=== PATIENT | female | born 1980 | race Caucasian/White ===

== ENCOUNTER 2018-03-04 08:48 | Inpatient (IN) | payer OTHER ==
--- NOTE | 2018-03-04 09:02 | EDPHY ---
General Time Seen by Provider: 03/04/18 09:00 Narrative: CLINICAL IMPRESSION: Alcohol abuse with mouthwash, withdrawal ASSESSMENT/PLAN: Patient is a 38-year-old female with a significant history of alcohol abuse and bipolar disorder who presents with a chief complaint of alcohol withdrawal from mouthwash. Patient was mildly tremulous and noticed to be tachycardic on arrival. CIWA protocol was initiated, see what initially of 4. Patient was given IV fluids and multiple doses of Ativan with mild improvement of her symptoms however she remained tachycardic. Patient has required Precedex and admission in the past. CBC revealed no evidence of leukocytosis or shift, do not suspect sepsis or serious bacterial illness. Basic metabolic panel revealed no evidence of acute metabolic abnormality or evidence of acute kidney injury. Phosphorus was normal. Lipase was normal, no findings to suggest acute pancreatitis. Alcohol level was 323 consistent with use. negative. U tox negative for other substances. History of physical examination is consistent with acute alcohol intoxication and signs of withdrawal, the patient will be admitted for further observation and management. On repeat examination her neurological exam remained grossly normal with no focal deficit. Mild tremulous with a heart rate of 116, she remained otherwise hemodynamically stable. We were unable to have a formal behavioral health evaluation performed secondary to clinical intoxication. No findings to suggest metabolic abnormality or other toxidrome. I spoke to Martine Sims on the admitting team, the patient will be admitted to Dr. Debbie Turcios. Case, results and plan of care discussed with Dr. Lopez. DIFFERENTIAL DX: Encephalopathy, delirium, withdrawal, DTs ED COURSE: 9:20 a.m.: Discussed with Dr. Lopez 10:45 a.m.: Case discussed with pillowcase cutter, patient with dual diagnosis and needs formal behavioral health evaluation. BA 323 at this time. 12:30 p.m.: On repeat examination the patient reports she is feeling better, still mildly tachycardic at 110 bpm. CHIEF COMPLAINT: Alcohol withdrawal HPI: Patient is a 38-year-old female with significant medical history of bipolar disorder and alcohol abuse who presents to the emergency department in "withdrawal". Patient reports over the last several days she has been consuming unknown amounts of Listerine mouthwash. Father is present, he speaks with her daily and noticed on Monday that she seemed to be intoxicated. He flew out here to assist her with detox. Patient reports a longstanding history of alcohol abuse, has required 2 admissions for withdrawal. No history of alcohol withdrawal seizures. Reports her last drink was this morning at 6:30 a.m.. Patient denies any alcohol use or illicit drug use including marijuana. Patient also prescribed Adderall, admits to abusing in the past however denies any recent use. Patient has tried to seek treatment in the past however has been unsuccessful with her attempts at detox. Patient complains of feeling chilled, anxious with occasional episodes of diaphoresis very typical for when she is going through withdrawal. She denies any fevers, headache, dizziness, chest pain, difficulty breathing, nausea or vomiting. She has had no abdominal pain. She denies any possibility of being . PMH: Bipolar disorder, alcohol abuse Pertinent Past Surgical History: Denies Family History: Not contributory Social History: Denies cigarette smoking, denies marijuana, ETOH-mouthwash REVIEW OF SYSTEMS: All other systems negative Constitutional: Chills, decreased appetite. No fever. Eyes: No discharge, vision change ENT: No sore throat, congestion, ear pain. Cardiovascular: No chest pain, no palpitations. Respiratory: No cough, no shortness of breath. Gastrointestinal: No abdominal pain, no vomiting, diarrhea. Genitourinary: No hematuria, dysuria, flank pain, pelvic pain Musculoskeletal: No back pain, joint swelling, joint pain, myalgias. Skin: No rashes, color change. Neurological: No headache, dizziness, weakness. PHYSICAL EXAM: General Appearance: Well-developed, no acute distress and not toxic-appearing HENT: Normocephalic, atraumatic. Bilateral external ears are normal. Bilateral tympanic membranes are normal with pearly skinner reflex. Nares are clear, mucosa is pink. Oropharynx is clear however very dry, uvula is midline. There is no tonsillar enlargement or exudate. The dentition is normal. Eyes: PERRLA, no acute vision change, mild horizontal nystagmus, swelling, discharge, pain or photosensitivity. Conjunctiva pink, no pallor or injection Neck: Supple, nontender, no lymphadenopathy, no midline pain, FROM, no meningismus. Respiratory: There are no retractions, lungs are clear to auscultation. Cardiac: Mild tachycardia, no murmurs or gallops. Gastrointestinal: Abdomen is soft, nontender, bowel sounds normal, no masses/ hernia, no rigidity, guarding or focal peritoneal findings. Neurological: Alert and oriented x 3, CN 2-12 grossly intact, normal gait no ataxia, DTR's intact, normal sensation and strength. Tremulous. Skin: Warm, dry, no rashes, no nodules on palpation. Musculoskeletal: Extremities are symmetrical, full range of motion, no tenderness, deformity, swelling, or erythema. Psychiatric: Patient is oriented X 3, there is no agitation. MEDICAL DECISION MAKING: Patient was seen independently. Secondary supervising physician at time of evaluation was Dr. Lopez. Diagnosis: Alcohol abuse, withdrawal. New, requires workup Summary: See Assessment and Plan for summary of ED visit Clinical lab tests: ordered / reviewed. Independent visualization of images, tracing, or specimens: Yes. Decision to obtain medical records or history from someone other than the patient: Yes, father Review / Summarize previous medical records: Yes Discussed patient with another provider: Yes, Dr. Lopez Patient Progress: Stable, admit. - History Smoking Status: Former smoker - Objective Vital Signs: Initial Vital Signs Temperature (C) 36.7 C 03/04/18 08:52 Heart Rate 108 H 03/04/18 08:52 Respiratory Rate 18 03/04/18 08:52 Blood Pressure 138/81 H 03/04/18 08:52 O2 Sat (%) 97 03/04/18 08:52 O2 Delivery Mode Room Air Allergies/Adverse Reactions: No Known Allergies Allergy (Verified 03/03/15 08:30) Home Medications: Medication Instructions Recorded Abilify 03/04/18 Laboratory Results: Laboratory Results 03/04/18 09:34 03/04/18 09:34 03/04/18 03/04/18 03/04/18 09:58 09:34 09:34 WBC RBC Hgb Hct MCV MCH MCHC RDW Plt Count MPV Neut % (Auto) Lymph % (Auto) [place] % (Auto) Eos % (Auto) Baso % (Auto) Nucleat RBC Rel Count Absolute Neuts (auto) Absolute Lymphs (auto) Absolute Monos (auto) Absolute Eos (auto) Absolute Basos (auto) Absolute Nucleated RBC Immature Gran % Immature Gran # Sodium 136 mEq/L mEq/L (135-145) Potassium 4.1 mEq/L mEq/L (3.5-5.2) Chloride 97 mEq/L mEq/L (97-110) Carbon Dioxide 20 mEq/l L mEq/l (22-31) Anion Gap 19 mEq/L H mEq/L (6-14) BUN 11 mg/dL mg/dL (7-23) Creatinine 0.6 mg/dL mg/dL (0.6-1.0) Estimated GFR > 60 Glucose 175 mg/dL H mg/dL (70-100) Calcium 8.4 mg/dL L mg/dL (8.5-10.4) Phosphorus 3.9 mg/dL mg/dL (2.5-4.5) Total Bilirubin 0.4 mg/dL mg/dL (0.1-1.4) Conjugated Bilirubin 0.2 mg/dL mg/dL (0.0-0.5) Unconjugated Bilirubin 0.2 mg/dL mg/dL (0.0-1.1) AST 61 IU/L H IU/L (14-46) ALT 49 IU/L IU/L (9-52) Alkaline Phosphatase 68 IU/L IU/L (38-126) Total Protein 7.8 g/dL g/dL (6.3-8.2) Albumin 4.5 g/dL g/dL (3.5-5.0) Lipase 199 IU/L IU/L (23-300) Beta HCG, Qual NEGATIVE Urine Opiates Screen NEGATIVE (NEGATIVE) Urine Barbiturates NEGATIVE (NEGATIVE) Ur Phencyclidine Scrn NEGATIVE (NEGATIVE) Ur Amphetamine Screen NEGATIVE (NEGATIVE) U Benzodiazepines Scrn NEGATIVE (NEGATIVE) Urine Cocaine Screen NEGATIVE (NEGATIVE) U Marijuana (THC) Screen NEGATIVE (NEGATIVE) Ethyl Alcohol 323 mg/dL H mg/dL (0-10) 03/04/18 09:34 WBC 7.07 10^3/uL 10^3/uL (3.80-9.50) RBC 5.05 10^6/uL 10^6/uL (4.18-5.33) Hgb 15.7 g/dL g/dL (12.6-16.3) Hct 44.8 % % (38.0-47.0) MCV 88.7 fL fL (81.5-99.8) MCH 31.1 pg pg (27.9-34.1) MCHC 35.0 g/dL g/dL (32.4-36.7) RDW 12.9 % % (11.5-15.2) Plt Count 323 10^3/uL 10^3/uL (150-400) MPV 7.9 fL L fL (8.7-11.7) Neut % (Auto) 62.8 % % (39.3-74.2) Lymph % (Auto) 28.3 % % (15.0-45.0) [place] % (Auto) 7.9 % % (4.5-13.0) Eos % (Auto) 0.1 % L % (0.6-7.6) Baso % (Auto) 0.8 % % (0.3-1.7) Nucleat RBC Rel Count 0.0 % % (0.0-0.2) Absolute Neuts (auto) 4.43 10^3/uL 10^3/uL (1.70-6.50) Absolute Lymphs (auto) 2.00 10^3/uL 10^3/uL (1.00-3.00) Absolute Monos (auto) 0.56 10^3/uL 10^3/uL (0.30-0.80) Absolute Eos (auto) 0.01 10^3/uL L 10^3/uL (0.03-0.40) Absolute Basos (auto) 0.06 10^3/uL 10^3/uL (0.02-0.10) Absolute Nucleated RBC 0.00 10^3/uL 10^3/uL (0-0.01) Immature Gran % 0.1 % % (0.0-1.1) Immature Gran # 0.01 10^3/uL 10^3/uL (0.00-0.10) Sodium Potassium Chloride Carbon Dioxide Anion Gap BUN Creatinine Estimated GFR Glucose Calcium Phosphorus Total Bilirubin Conjugated Bilirubin Unconjugated Bilirubin AST ALT Alkaline Phosphatase Total Protein Albumin Lipase Beta HCG, Qual Urine Opiates Screen Urine Barbiturates Ur Phencyclidine Scrn Ur Amphetamine Screen U Benzodiazepines Scrn Urine Cocaine Screen U Marijuana (THC) Screen Ethyl Alcohol Medications Given: Lorazepam (Ativan Injection) 0 mg IVP Q1H PRN; Protocol PRN Reason: Alcohol Withdrawal w/IV access Stop: 03/04/18 21:18 Last Admin: 03/04/18 13:17 Dose: 2 mg Discontinued Medications Sodium Chloride (Ns) 1,000 mls @ 0 mls/hr IV ONCE ONE PRN Reason: Wide Open Stop: 03/04/18 09:19 Last Admin: 03/04/18 09:36 Dose: 1,000 mls Lorazepam (Ativan Injection) 2 mg IVP EDNOW ONE Stop: 03/04/18 09:32 Last Admin: 03/04/18 09:37 Dose: 2 mg Departure - Departure Disposition: [facility] Clinical Impression: Alcohol withdrawal Qualifiers: Complication of substance-induced condition: with unspecified complication Qualified Code(s): F10.239 - Alcohol dependence with withdrawal, unspecified Condition: Fair Referrals: BILL BEDOYA [Primary Care Provider] - As per Instructions
[2018-03-04] MEDS ORDERED: NS 1,000 ML IV ONE (09:18)
[2018-03-04] MEDS ORDERED: LORazepam 1 MG TAB PO PRN (09:18)
[2018-03-04] MEDS ORDERED: LORazepam 2 MG/ML INJ IVP ONE (09:31)
[2018-03-04 09:39] LABS: PLATELET COUNT 323 10^3/uL (150-400)
[2018-03-04] MEDS: LORazepam 2 MG/ML INJ IVP PRN ×8 (10:57→20:59)
[2018-03-04] MEDS ORDERED: ONDANSETRON 4 MG/2 ML VIAL IVP PRN (14:54)
[2018-03-04] MEDS ORDERED: FLUMAZENIL 0.5 MG/5 ML MDV IVP PRN (14:54)
[2018-03-04] MEDS ORDERED: ONDANSETRON DISINTEGRATING 4 MG TAB PO PRN (14:54)
[2018-03-04] MEDS ORDERED: ACETAMINOPHEN 325 MG TAB PO PRN (14:54)
--- NOTE | 2018-03-04 16:09 | GHP ---
DATE OF ADMISSION: 03/04/2018 CHIEF COMPLAINT: Alcohol withdrawal. HPI: The patient is a 38-year-old woman with a history of alcoholism and bipolar disease. She has a long history of alcoholism. Previously, she was drinking beer and had multiple stints in rehab in [facility] ([place], [place]) and at [facility]. Her last sobriety was in 2012, this was a forced sobri ety while she was on probation. She has been continuing to drink over the recent past. However, she started drinking mouthwash, just mainly it sounds like because of stigmata was not as bad as drinkin g beer. It sounds like she drinks a big bottle per day. Her last drink was this morning at 6:30. S he has been drinking more heavily over the past 3 to 4 days. Her father, who lives in [place], has been calling her and noted a significant change in her behavior since Monday night, and flew out thi s morning and found her at home inebriated and shaky, so brought her to the emergency room. She also has a history of bipolar disease and is followed by Dr. Spring Dang. She is on Abilify an d gabapentin and propranolol. However, she ran out of the gabapentin and propranolol a few days ago, and at that point is when her drinking escalated. She has had fairly significant alcohol withdrawal s in the past requiring Precedex and extended hospitalizations. REVIEW OF SYSTEMS: A 10-point review of systems was done with pertinent positives present in HPI. A dditionally, she has had no significant tremors or seizures this morning. However, she is quite tach ycardic and diaphoretic. She denies chest pain. She denies abdominal complaints, urinary, bowel arielle nges, or lower extremity complaints. PAST MEDICAL HISTORY: 1. Alcoholism. 2. Bipolar disease. 3. Migraine headaches. 4. Exercise-induced asthma. FAMILY HISTORY: A paternal grandfather with Parkinson disease. Mother has a history of alcohol use. SOCIAL HISTORY: She is . She has 3 boys and raises them, ages 8, 10, and 12. She quit smok ing and does not use marijuana. 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 MEDICATIONS: Currently, she is taking Abilify, however, she stopped taking the gabapentin and propra nolol over the last few days. ALLERGIES: No known drug allergies. PHYSICAL EXAM: VITAL SIGNS: Heart rate is 120 to 130, blood pressure 135/80, respirations 16. She is 94% on room air. IN GENERAL: She is a slightly disheveled 38-year-old in mild distress. She is alert and oriented. HEENT: Pupils are equal. Extraocular movements are intact. Mucous membranes m oist. Oropharynx is clear. NECK: Supple. No adenopathy. HEART: Regular and tachycardic. No mur mur. LUNGS: Clear bilaterally without wheeze or rhonchi. ABDOMEN: Soft, nontender, nondistended. EXTREMITIES: No joint deformities or effusions. NEUROLOGIC: Speech is fluent. Minimal tremulousn ess. She is moving all 4 extremities. PSYCHIATRIC: She has a slightly bizarre affect given the cir cumstances of her admission. But she is appropriate. Her father is at the bedside. SKIN: Intact. She is not jaundiced. ASSESSMENT AND PLAN: 1. 38-year-old with a long history of alcohol abuse, recently drinking mouthwash as her primary alco hol intake, is admitted for alcohol withdrawal and detox. Plan will be to admit her to the hospital, place her on the [facility] Withdrawal Assessment protocol. She is at high risk given her p revious history of detox of requiring Precedex or high doses of Ativan. 2. Bipolar disease, followed by Dr. Spring Dang. Will continue her Abilify and resume her gabapen tin here in the hospital. 3. Deep vein thrombosis prophylaxis. Patient is relatively low risk and if she has an extended hosp italization, will add Lovenox subcu. /[id number]/MODL
[2018-03-04] MEDS: ARIPiprazole 5 MG TAB PO SCH (16:25)
[2018-03-04] MEDS: GABAPENTIN 400 MG CAP PO SCH ×2 (16:25→19:40)
--- NOTE | 2018-03-04 16:42 | ASMTCMCOM ---
CM Note CM Note Notes: Pt presented to the ED for ETOH withdrawal detox. Pt is accompanied by her father, Tiarra, who flew into [place] from [place], [place]. Requested by ED provider to try to find placement to a medical detox / dual diagnosis program (pt has a history of JOHN, Bipolar disorder, PTSD). Provider requesting placement other than [facility] due to concerns re: her history of requiring Precedex SDU/ICU admission for her ETOH w/d ([facility]?); and concerns re: her choice to drink bottles of Listerine as her source of alcohol. Spoke w/pt and Tiarra extensively at bedside; discussed options such as [facility] or [facility]. Pt kept saying "I need to be admitted to your ICU and get ativan," and "I need more medical care than [facility]. They don't do anything. I need the ICU and valium." This CM attempted to explain the overall approach and process from the ED but the pt kept interrupting and Tiarra also voiced his concerns over pt leaving the hospital setting. At this point, this CM spoke w/ED provider and relayed the pt's and Tiarra's perspective and concern. It was decided that CM would still attempt to get pt placed at either or ; this CM sent referrals via [employer]. Spoke w/Fede at [facility] and he was not able to confirm whether [facility] was in network w/pt's insurance and "to call back during regular business hours." Spoke w/Marin at and he said that they are considered [id number] w/pt's insurance but that they could still accept if pt is willing to sign an [id number] agreement prior to admission; Marin also initially said they wouldn't need an official full mental health eval but after reviewing pt's case further they decided they would need a complete mental health eval. Pt is not sober enough to be evaluated by [facility] and ultimately the ED provider decided that pt would benefit from being admitted. Pt's psychiatrist is Dr Spring Abarca. Pt states she has been regularly taking her Abilify but stopped taking her other meds a couple of days ago. Pt has three children and shared custody w/her ex who lives in [place]. Pt has an extensive history of substance abuse and mental health issues. Pt states she has been to a treatment facility in [place] and then transitioned back to [place] to [facility] in [place]. Please see H&P for additional info. Pt would probably benefit from another residential SA treatment stay, inpatient behavioral health stay, IOP vs OP, etc. Pt is very familiar with various outpatient resources such as AA, [facility], [facility], etc. Tiarra states he thinks he and his (pt's mother) will end up moving out to [place] to help support patient. Exact DC needs TBD. CM to follow. Date Signed: 03/04/2018 04:42 PM Electronically Signed By:Anna Waggoner RN
[2018-03-04] MEDS ORDERED: PROTOCOL MAGNESIUM 1 DOSE IV PRN (16:57)
[2018-03-04] MEDS ORDERED: PROTOCOL K PHOSPHATE 1 DOSE IV PRN (16:57)
[2018-03-04] MEDS ORDERED: PROTOCOL POTASSIUM 1 DOSE MISC PRN (16:57)
[2018-03-04] MEDS ORDERED: MAGNESIUM SULF 1 GM/DEXTROSE 100 ML IV ONE (17:03)
[2018-03-04] MEDS: FAMOTIDINE 20 MG TAB PO SCH (19:40)
[2018-03-04] MEDS: PROPRANOLOL HCL 20 MG TAB PO SCH (19:40)
--- NOTE | 2018-03-04 20:09 | PDMN ---
Medical Necessity Medical necessity: [facility] [id number] substance related disorders: 38 with long hx of ETOH abuse/ previous detox- high risk due to previous detoxs req precede or Ativan, tachycardia, bipolar, etoh level 323- CIWA anticipate > 2 MN ongoing med nec care, further monitoring, eval and tx
[2018-03-05] MEDS: LORazepam 2 MG/ML INJ IVP PRN ×10 (02:32→22:32)
[2018-03-05] MEDS: GABAPENTIN 400 MG CAP PO SCH ×4 (05:47→20:22)
[2018-03-05] MEDS: THIAMINE HCL 500 MG in NS 100 ML IV SCH (08:12)
[2018-03-05] MEDS: ARIPiprazole 5 MG TAB PO SCH (08:12)
[2018-03-05] MEDS: FAMOTIDINE 20 MG TAB PO SCH ×2 (08:12→20:23)
[2018-03-05] MEDS: PROPRANOLOL HCL 20 MG TAB PO SCH ×2 (08:12→20:23)
[2018-03-05] MEDS: OXcarbazepine 300 MG TAB PO SCH (08:12)
[2018-03-05] MEDS: FOLIC ACID 1 MG TAB PO SCH (08:12)
[2018-03-05] MEDS: MULTIVITAMINS 1 EACH TAB PO SCH (08:12)
--- NOTE | 2018-03-05 10:44 | HOSPPROG ---
Hospitalist Progress Note Assessment/Plan: 38-year-old with bipolar disease and alcoholism is admitted for detox. She has received 16 mg of Ativan over the past 12 hr and continues to have some anxiety. She has not yet 24 hr out from her last drink and has the risk potential for worsening and DTs in the next 24 hr. # alcoholism and alcohol withdrawal * Continue CIWA * Will need an additional midnight stay for ongoing close monitoring for her alcohol withdrawal and seizure potential # bipolar disease, followed by Dr. Spring Dang as an outpatient * I have resumed her usual outpatient medication * She will need close follow-up after discharge # DVT prophylaxis: Will add Lovenox given her minimal ambulation since arriving Subjective: Patient continues to feel significant anxiety and some sedation from the Ativan. Objective: Vital Signs Temp Pulse Resp BP Pulse Ox 37.2 C 97 15 124/81 H 97 03/05/18 00:00 03/05/18 08:12 03/05/18 08:00 03/05/18 08:12 03/05/18 08:00 Laboratory Results 03/05/18 05:38 03/04/18 03/05/18 03/06/18 05:59 05:59 05:59 Intake Total 1250 Output Total 1 Balance 1249 - Physical Exam Constitutional: uncomfortable Eyes: PERRL Ears, Nose, Mouth, Throat: moist mucous membranes Cardiovascular: regular rate and rhythym Respiratory: no respiratory distress Gastrointestinal: soft, non-tender abdomen, no palpable masses Genitourinary: no bladder fullness Skin: normal color, other (Diaphoretic) Musculoskeletal: No muscular tenderness Neurologic: AAOx3 Psychiatric: interacting appropriately, anxious ICD10 Worksheet Patient Problems: Problems Problem Status Onset Alcohol withdrawal Acute
--- NOTE | 2018-03-05 14:57 | ASMTCMCOM ---
CM Note CM Note Notes: A family meeting was held today with the father of patient. (see Elizabeth Tinajero's notes) Abilio was given [facility] resources for himself and the patient. Abilio states patient sees a psychiatrist and a therapist currently. Abilio reports patient has not had success with inpatient A and D treatment and the IOP programs are difficult for her due to parenting responsibilities. He and his are planning to eventually move here to be family support and daily support for the patient. Airam has always done better when her family has been close by to support her as reported by her father.CM is available to provide further resources to patient if she has interest. CM will follow. Date Signed: 03/05/2018 02:57 PM Electronically Signed By:Yajaira Adorno LCSW
--- NOTE | 2018-03-05 16:04 | GCON ---
CRITICAL CARE CONSULTATION DATE OF CONSULTATION: 03/05/2018 HISTORY OF PRESENT ILLNESS: This patient is a 38-year-old female with a history of alcoholism and bi polar disorder who has been through rehab multiple times in the past and was sober up until about 201 3. However, it sounds like there are multiple social issues at home with stresses with her current h usband or boyfriend and started drinking heavily over the last several days. She was admitted on the with mental status changes, intoxication and tremors and started on the CIWA protocol. She rec eived a total of 16 mg of Ativan overnight and was substantially better by this morning and needed ve ry little, if any, Ativan over the course of the day today, and no Precedex drip was required. She s aid that she does want to quit drinking, and we did not go into further details about her social situ ation. REVIEW OF SYSTEMS: Review of systems otherwise negative. She did have tachycardia and diaphoresis y esterday, but those do not exist today. PAST MEDICAL HISTORY: Includes alcoholism, bipolar disease, migraines. She is also thought to have exercise-induced asthma but does not use any inhalers. SOCIAL HISTORY: She is a former smoker but not current and was drinking quite a bit of alcohol prior to admission as well as mouthwash. FAMILY HISTORY: Includes Parkinson's and alcoholism. MEDICATIONS: Medications as an outpatient include Abilify, gabapentin, and propranolol. ALLERGIES: None. PHYSICAL EXAMINATION: VITAL SIGNS: Today, she was afebrile. Blood pressure was 132/82, heart rate of 78, respirations 13, oxygen saturation 97% on room air. GENERAL APPEARANCE: She was awake, alert , in no apparent distress and able to speak in full sentences without using accessory muscles for katie athing. HEENT: Pupils equally round and reactive to light, nonicteric and noninjected. Mucous memb ranes are moist without erythema or exudate. NECK: Supple without adenopathy or jugular vein disten tion. CHEST: Breath sounds were clear to auscultation bilaterally without wheezes rubs or rales. H EART: Regular rate and rhythm without murmurs, rubs, gallops. ABDOMEN: Soft, nontender, nondistend ed without hepatosplenomegaly. EXTREMITIES: Show no clubbing, cyanosis, or edema. NEUROLOGIC: Non focal, including cranial nerves, deep tendon reflexes. There was no tremor, asterixis, or diaphoresi s. OBJECTIVE DATA: Includes labs from yesterday with a normal CBC and CMP except for an AST of 61. Tox screen showed an alcohol level of 323. ASSESSMENT AND PLAN: 1. Alcohol withdrawal presumably. She appears to have gotten through this fairly quickly, although it was a fairly high dose of Ativan. She has needed very little Ativan over the course of the day to day, and she may be past the worst of it. Will continue her observation but may downgrade her to med /surg this afternoon. 2. Bipolar disorder. She continues on her Abilify. Appears to be relatively stable at this time. Case is reviewed with Dr. Turcios today. /[id number]/MODL
[2018-03-05] MEDS: chlordiazePOXIDE 25 MG CAP PO PRN (22:38)
[2018-03-06] MEDS: LORazepam 2 MG/ML INJ IVP PRN ×11 (00:07→19:46)
[2018-03-06] MEDS: chlordiazePOXIDE 25 MG CAP PO PRN (03:33)
[2018-03-06] MEDS: GABAPENTIN 400 MG CAP PO SCH ×4 (05:25→20:19)
[2018-03-06] MEDS: DEXMEDETOMIDINE HCL 400 MCG in NS 100 ML IV SCH ×2 (06:00→22:37)
[2018-03-06] MEDS: LORazepam 1 MG TAB PO SCH ×3 (06:12→18:05)
[2018-03-06] MEDS: FOLIC ACID 1 MG TAB PO SCH (07:59)
[2018-03-06] MEDS: ARIPiprazole 5 MG TAB PO SCH (07:59)
[2018-03-06] MEDS: FAMOTIDINE 20 MG TAB PO SCH ×2 (07:59→20:19)
--- NOTE | 2018-03-06 09:37 | PDINTPN ---
Compensation Advisor Progress Note Assessment/Plan: Assessment: Plan: Subjective: 38 F with emt intermediate alcohol problems and multiple attempts at rehab, admitted with tremor, intoxication (BAL= 323) and altered mental status. She was started on the CIWA protocol and required 16 mg ativan in the first 24 hours. * alcohol withdrawal- She has been treated with a total of 42 mg Ativan in the 48 hours, including 26 mg in the last 24 hours. She was reportedly delirious last night and was walking down the casas, though she said she was confused about restraints, and ultimately required a precedex drip. She called her Dad ( visiting from out of state) at 0500 and wanted him to be here early to facilitate discharge, for which she was highly anxious about this am during my exam. She said her issues for DC revolved around being in her own home and preparing for her kids tomorrow afternoon. After discussion with staff electrical engineer and Dr. Turcios, we agreed that we are unlikely to alter her behavior and she is under the treatment of a local psychiatrist already. If she can maintain without precedex or escalating benzos she may be able to go home, but I suspect she is in the middle of active alcohol withdrawal and her current state of general stability is the result of her CIWA protocol. * Bipolar disorder stable on abilify. Objective: Vital Signs Temp Pulse Resp BP Pulse Ox 36.6 C 83 15 110/76 91 L 03/06/18 07:41 03/06/18 07:41 03/06/18 07:41 03/06/18 07:41 03/06/18 07:41 Laboratory Results 03/06/18 06:03 03/05/18 03/06/18 03/07/18 05:59 05:59 05:59 Intake Total 1250 2249 Output Total 1 Balance 1249 2249 Physical Exam - Physical Exam General Appearance: WD/WN, alert, no apparent distress EENT: PERRL/EOMI, No scleral icterus (R), No scleral icterus (L) Neck: supple Respiratory: lungs clear, normal breath sounds, No respiratory distress, No accessory muscle use Cardiac/Chest: regular rate, rhythm, No edema Abdomen: non-tender, soft, No distended Skin: normal color, warm/dry, No cyanosis, No diaphoresis Lymphatic: no adenopathy Extremities: No pedal edema Neuro/Psych: alert, normal mood/affect, oriented x 3, other (no tremor. questionable insight to the severity of her alcohol problem. ) ICD10 Worksheet Patient Problems: Problems Problem Status Onset Alcohol withdrawal Acute
--- NOTE | 2018-03-06 09:46 | HOSPPROG ---
Hospitalist Progress Note Assessment/Plan: 38-year-old with bipolar disease and alcoholism is admitted for detox. She has received 42 mg of ativan over the last 48 hours and on a precedex drip overnight. # alcoholism and alcohol withdrawal * Pt is anxious to go home however given her significant need for ativan and precedex I feel she is still in withdrawal * After stopping precedex she became much more agitated and agreed to stay and resume precedex # bipolar disease, followed by Dr. Spring Dang as an outpatient * I have resumed her usual outpatient medication * She will need close follow-up after discharge # DVT prophylaxis: Will add Lovenox given her minimal ambulation since arriving Subjective: Alert and appropriate, although anxious. Just off of precedex Objective: Vital Signs Temp Pulse Resp BP Pulse Ox 36.6 C 83 15 110/76 91 L 03/06/18 07:41 03/06/18 07:41 03/06/18 07:41 03/06/18 07:41 03/06/18 07:41 Laboratory Results 03/06/18 06:03 03/05/18 03/06/18 03/07/18 05:59 05:59 05:59 Intake Total 1250 2249 Output Total 1 Balance 1249 2249 - Physical Exam Constitutional: appears nourished Eyes: PERRL, EOMI Cardiovascular: regular rate and rhythym Respiratory: no respiratory distress Skin: normal color Musculoskeletal: full muscle strength Neurologic: AAOx3 Psychiatric: anxious ICD10 Worksheet Patient Problems: Problems Problem Status Onset Alcohol withdrawal Acute
[2018-03-06] MEDS: OXcarbazepine 300 MG TAB PO SCH (11:03)
[2018-03-06] MEDS: PROPRANOLOL HCL 20 MG TAB PO SCH ×2 (11:03→20:20)
[2018-03-06] MEDS: MULTIVITAMINS 1 EACH TAB PO SCH (11:03)
[2018-03-06] MEDS: THIAMINE HCL 500 MG in NS 100 ML IV SCH (12:20)
[2018-03-07] MEDS: LORazepam 1 MG TAB PO SCH ×2 (01:13→05:06)
[2018-03-07] MEDS: chlordiazePOXIDE 25 MG CAP PO PRN (03:50)
[2018-03-07] MEDS: GABAPENTIN 400 MG CAP PO SCH ×4 (05:06→20:24)
[2018-03-07] MEDS ORDERED: MAGNESIUM SULF 1 GM/DEXTROSE 100 ML IV ONE (08:16)
[2018-03-07] MEDS: PROPRANOLOL HCL 20 MG TAB PO SCH ×2 (08:21→20:23)
[2018-03-07] MEDS: FAMOTIDINE 20 MG TAB PO SCH ×2 (08:22→20:24)
[2018-03-07] MEDS: ARIPiprazole 5 MG TAB PO SCH (08:23)
[2018-03-07] MEDS: FOLIC ACID 1 MG TAB PO SCH (08:24)
[2018-03-07] MEDS: MULTIVITAMINS 1 EACH TAB PO SCH (08:24)
[2018-03-07] MEDS: THIAMINE HCL 100 MG TAB PO SCH (08:24)
[2018-03-07] MEDS: OXcarbazepine 300 MG TAB PO SCH (08:25)
[2018-03-07] MEDS ORDERED: DIHYDROERGOTAMINE 1 MG/ML AMP IVP ONE (09:57)
[2018-03-07] MEDS: chlordiazePOXIDE 25 MG CAP PO SCH ×3 (11:29→21:32)
[2018-03-07] MEDS: LORazepam 1 MG TAB PO PRN ×2 (14:06→20:23)
--- NOTE | 2018-03-07 14:19 | PDINTPN ---
Visual Merchandising Manager Progress Note Assessment/Plan: 38 F with long history of etoh abuse and failed rehab multiple times, admitted after her father found her intoxicated and altered. She has apparently been substituting Listerine for etoh. Interested in completing wd protocol. * ETOH wd- in the first 48 hours, her CIWA score was remarkably high for someone who can maintain a fairly highly functioning conversation. I had a lengthy discussion with her this am concerning the severity of her illness and stressed that she understand that her previous strategies have failed and the consequences may be far-reaching, such as losing her kids. She has been very cooperative to date. Today we will schedule Librium and keep her off precedex and monitor for changes. She understood that her dishcarge is dependent on the amount of medication needed to ensure stability. It is possible, though not promised, that she could be ready for dc as early as tomorrow. There is also the possibility that her self-reported symptoms are actually drug-seeking rather than etoh wd related, though we have not discussed this yet. Subjective: still required ativan in last 24 hours in addition to precedex. Remains anxious for dc home Objective: Vital Signs Temp Pulse Resp BP Pulse Ox 36.4 C 81 16 111/81 H 96 03/07/18 12:00 03/07/18 14:00 03/07/18 14:00 03/07/18 14:00 03/07/18 14:00 Laboratory Results 03/07/18 05:21 03/06/18 03/07/18 03/08/18 05:59 05:59 05:59 Intake Total 2249 1302.5 Output Total 1 Balance 2249 1301.5 Physical Exam - Physical Exam General Appearance: WD/WN, alert, no apparent distress EENT: PERRL/EOMI Neck: supple Respiratory: lungs clear, normal breath sounds, No respiratory distress, No accessory muscle use Cardiac/Chest: regular rate, rhythm, No edema Abdomen: normal bowel sounds, non-tender, soft, No distended Skin: normal color, warm/dry, No cyanosis Lymphatic: no adenopathy Extremities: No pedal edema Neuro/Psych: alert, normal mood/affect, oriented x 3 ICD10 Worksheet Patient Problems: Problems Problem Status Onset Alcohol withdrawal Acute
--- NOTE | 2018-03-07 17:08 | HOSPPROG ---
Hospitalist Progress Note Assessment/Plan: 38-year-old with bipolar disease and alcoholism presented intoxicated and wanting to detox/withdrawal. She received >40mg ativan 2 days ago and >20mg ativan yesterday in addition to precedex. 1. Alcohol withdrawal: Improving, off precedex, benzo requirements high but going down. - Schedule librium 50mg TID, keep on board ativan PO PRN for additional agitation 2. Alcohol abuse: She is motivated to quit. Counseled on cessation. 3. Bipolar disease: Followed by Dr Spring Dang - Continue outpatient medications VTE ppx: ambulation Code: full Diet: regular Dispo: Remain inpatient, hopefully home in next 1-2 days pending clinical course Subjective: Sitting up in chair eating lunch. Wondering when she can go home. Feels good, no tremors or hallucinations. Objective: Vital Signs Temp Pulse Resp BP Pulse Ox 36.4 C 90 16 121/77 H 97 03/07/18 16:00 03/07/18 16:00 03/07/18 16:00 03/07/18 16:00 03/07/18 16:00 Laboratory Results 03/07/18 05:21 03/06/18 03/07/18 03/08/18 05:59 05:59 05:59 Intake Total 2249 1302.5 Output Total 1 Balance 2249 1301.5 - Physical Exam Constitutional: no apparent distress, appears nourished, not in pain Eyes: PERRL, anicteric sclera, EOMI Ears, Nose, Mouth, Throat: moist mucous membranes, hearing normal, ears appear normal, no oral mucosal ulcers Cardiovascular: regular rate and rhythym, no murmur, rub, or gallop Respiratory: no respiratory distress, no rales or rhonchi, clear to auscultation Gastrointestinal: normoactive bowel sounds, soft, non-tender abdomen, no palpable masses Genitourinary: no bladder fullness, no bladder tenderness, no renal bruits Skin: no rashes or abrasions, no fluctuance, no induration Musculoskeletal: full muscle strength, no muscle tenderness, normal joint ROM Neurologic: AAOx3, other (no tongue fasciculations or hand tremors), No asterixes Psychiatric: interacting appropriately, not anxious, not encephalopathic, thought process linear ICD10 Worksheet Patient Problems: Problems Problem Status Onset Alcohol withdrawal Acute
[2018-03-07] MEDS ORDERED: diphenhydrAMINE 25 MG CAP PO PRN (22:33)
[2018-03-07] MEDS ORDERED: MELATONIN 3 MG TAB PO PRN (22:33)
[2018-03-08] MEDS: LORazepam 1 MG TAB PO PRN (02:58)
[2018-03-08] MEDS: GABAPENTIN 400 MG CAP PO SCH (06:34)
[2018-03-08] MEDS ORDERED: MAGNESIUM SULF 1 GM/DEXTROSE 100 ML IV ONE (07:39)
[2018-03-08 08:02] VITALS: BP 125/79
[2018-03-08] MEDS: ARIPiprazole 5 MG TAB PO SCH (08:39)
[2018-03-08] MEDS: FAMOTIDINE 20 MG TAB PO SCH (08:39)
[2018-03-08] MEDS: THIAMINE HCL 100 MG TAB PO SCH (08:39)
[2018-03-08] MEDS: FOLIC ACID 1 MG TAB PO SCH (08:39)
[2018-03-08] MEDS: PROPRANOLOL HCL 20 MG TAB PO SCH (08:39)
[2018-03-08] MEDS: MULTIVITAMINS 1 EACH TAB PO SCH (08:39)
[2018-03-08] MEDS ORDERED: THIAMINE HCL 100 MG TAB PO SCH (09:00)
[2018-03-08] MEDS: OXcarbazepine 300 MG TAB PO SCH (09:36)
[2018-03-08] MEDS: chlordiazePOXIDE 25 MG CAP PO SCH (09:36)
--- NOTE | 2018-03-08 11:38 | PDDCSUM ---
Discharge Summary Discharge Summary: Date of Admission: 03/04/2018 Date of Discharge: 03/08/2018 Consultants: pilot manager (Dr Amadou Liang) Studies/Procedures: none Discharge Diagnoses: 1. Severe alcohol withdrawal 2. Alcohol abuse disorder 3. Mood/bipolar disorder, followed by Dr Spring Dang Brief Hospital Course: 38yo F with long history of etoh abuse was admitted after her father found her intoxicated. She had apparently been substituting Listerine for etoh. She was interested in completing withdrawal and was started on the CIWA protocol. She was initially requiring very high doses of benzodiazepines as well as precedex. We transitioned her to scheduled librium and she was ultimately discharged with a librium taper. She reports that she plans to continue going to AA meetings and try a new sobriety program. Additionally, her father just moved nearby to provide additional support, as she is a single mother with sole custody of her children. It should be noted that on several occasions over the last few days of her hospitalization, the patient was adamant about leaving the hospital prematurely. This was concerning behavior to us. Dr Liang and myself had a conversation with her and her father regarding this. Ultimately, she was medically stable on day of discharge. Medications: Please refer to EMR for complete list. I did write for a librium taper as follows: 50mg TID x3 days, then 25mg TID x3 days, then 10mg TID x3 days , then stop. Follow Up Plan: 1. She plans to follow up with sobriety resources as listed above Physical Exam: Vitals reviewed, normal HR and BP. Alert and oriented, no hand tremor or tongue fasciculations, rrr without m/r/g, lungs clear, abdomen soft, no rashes or edema.
--- NOTE | 2018-03-08 13:48 | PDINTPN ---
Lien Searcher Progress Note Assessment/Plan: 38 F with long history of etoh abuse and failed rehab multiple times, admitted after her father found her intoxicated and altered. She has apparently been substituting Listerine for etoh. She was initially interested in completing wd protocol. * ETOH wd- yesterdays attempt at scheduled librium and dc precedex was mostly successful, though she required 2 mg ativan at 1400, 2020, and 0300 this morning. She reported anxiety about ongoing hospitalization as the reason for her ativan requirement. Today she was dressed and prepared to leave AMA if we did not dc her home. In my opinion, she is medically stable for discharge, eg there are no physiologic parameters that are requiring ongoing admission. I think it is still atyp[ical to dc at this time and have made that abundantly clear to her on numerous occasions. I also cautioned her to reconsider her plan for leaving AMA given the implications summer camp counselor, and she agreed. Dr. Painting and I discussed plans for an outpatient Librium taper, though I strongly suspect her etoh issues will continue given her urgency and insistence for premature discharge. She said she now has her father renting an apartment nearby so can "lean" on him for more social support, since she is a single mother with sole custody of her children. I believe she fully understands the issues. In addition, I would reiterate my suspicion that she may be drug seeking , although I have very little to support that concept. 03/08/18 13:41 03/08/18 13:49 Subjective: feels well and continues to emphasize discharge. Today threatened to leave AMA. Objective: Vital Signs Temp Pulse Resp BP Pulse Ox 36.7 C 94 17 125/79 H 98 03/08/18 07:59 03/08/18 07:59 03/08/18 07:59 03/08/18 07:59 03/08/18 07:59 Laboratory Results 03/08/18 05:57 03/07/18 03/08/18 03/09/18 05:59 05:59 05:59 Intake Total 1302.5 3050 Output Total 1 Balance 1301.5 3050 Physical Exam - Physical Exam General Appearance: WD/WN, alert, no apparent distress EENT: PERRL/EOMI Neck: supple Respiratory: lungs clear, normal breath sounds, No respiratory distress, No accessory muscle use Cardiac/Chest: regular rate, rhythm, No edema Abdomen: non-tender, soft, No distended Skin: normal color, warm/dry, No cyanosis Lymphatic: no adenopathy Extremities: No pedal edema Neuro/Psych: alert, normal mood/affect, oriented x 3 ICD10 Worksheet Patient Problems: Problems Problem Status Onset Alcohol withdrawal Acute
== END 2018-03-08 12:21 | disposition home or self-care (01) | DRG 897 ==
LOC: F2N 15:00
PROVIDERS: ADMIT Internal Medicine; ATTEND Internal Medicine
DX: F10.230 Alcohol dependence with withdrawal, uncomplicated (principal); F10.220 Alcohol dependence with intoxication, uncomplicated; F31.9 Bipolar disorder, unspecified; G43.909 Migraine, unspecified, not intractable, without status migrainosus; Z87.891 Personal history of nicotine dependence
CPT/HCPCS: 80305; 96374; G0480; J2060; J3411; J3475

== ENCOUNTER 2018-03-25 11:10 | Observation (INO) | payer OTHER ==
--- NOTE | 2018-03-25 11:29 | EDPHY ---
H & P Stated Complaint: med reaction - Personal History Current Tetanus/Diphtheria Vaccine: Yes Current Tetanus Diphtheria and Acellular Pertussis (TDAP): Yes Tetanus Vaccine Date: WITHIN 10 YRS - Medical/Surgical History Hx Asthma: No Hx Chronic Respiratory Disease: No Hx Diabetes: No Hx Cardiac Disease: No Hx Renal Disease: No Hx Cirrhosis: No Hx Alcoholism: Yes Hx HIV/AIDS: No Hx Splenectomy or Spleen Trauma: No Other PMH: jaw surgery, ADD, depression, anxiety, PTSD, ?bipolar, ETOH - Social History Smoking Status: Former smoker Time Seen by Provider: 03/25/18 11:22 HPI/ROS: CHIEF COMPLAINT: "I am here to have my sodium level checked" HISTORY OF PRESENT ILLNESS: 38-year-old female history of alcoholism, history of recent hospitalization at [facility] for medical detox at which point she was started on Tripleptal. She spoke with her psychiatrist regarding her bipolar disorder and her psychiatrist was concerned due to her somnolence and slurred speech that the patient may be hyponatremic, possible adverse effect Trileptal, recommend she go to the ER today (Monday) for blood work. Patient denies acute alcohol use. Patient has no complaints of pain or discomfort. The father at bedside provides further information noting that the patient seems more somnolent for the past 2 weeks since discharge from the hospital. No trauma. Patient denies: Abdominal pain, nausea, vomiting, dyspnea, rash, intraoral lesion, trauma, fall, head injury, assault, illicit drug use REVIEW OF SYSTEMS: 10 systems reviewed and negative with the exception of the elements mentioned in the history of present illness PAST MEDICAL & SURGICAL HISTORY: Bipolar disorder. Alcoholism history. Anxiety. Attention deficit hyperactivity disorder. SOCIAL HISTORY:Denies acute alcohol or drug use PHYSICAL EXAM (Prior to examination, patient consented to physical exam, hands were washed and my usual and customary physical exam procedures followed) 1) GENERAL: Well-developed, well-nourished, somnolent, slurred speech. 2) HEAD: Normocephalic, atraumatic 3) HEENT: Pupils equal, round, reactive to light bilaterally. Sclera anicteric. Nasopharynx, oropharynx, clear, no lesions. MoistDry mucous membranes. Ears bilaterally with normal tympanic membranes. 4) NECK: Full range of motion, no meningeal signs. 5) LUNGS: Clear auscultation bilaterally, no wheezes, no rhonchi, no retractions. 6) HEART: Regular rate and rhythm, no murmur, no heave, no gallop. 7) ABDOMEN: No guarding, no rebound, no focal tenderness, negative McBurney's, negative Fuller's, negative Rovsing's, negative peritoneal sign, 8) MUSCULOSKELETAL: Moving all extremities, no focal areas of tenderness, no obvious trauma. No peripheral edema or discoloration. 9) BACK: No CVA tenderness, no midline vertebral tenderness, no fluctuance, no step-off, no obvious trauma, no visual or palpable abnormality. 10) SKIN: No rash, no petechiae. 11) Psychiatric: Patient is oriented X 3, she is highly somnolent 12) NEURO: Sleeping, oriented to person, place and time. Speech is slow. Cranial nerves 2 through to 12 intact. Unable to ambulate without assistance more than 2 steps. Upper and lower extremities bilaterally with strength 5 / 5, reflexes 2+. DIFFERENTIAL DIAGNOSIS: In no particular orderincluding but not limited to hypoglycemia, infectious process, poly pharmacy, hepatic encephalopathy, electrolyte abnormality, head injury and intoxicants. (Kaylynn Alberto Muna) Constitutional: Initial Vital Signs Temperature (C) 36.7 C 03/25/18 11:14 Heart Rate 74 03/25/18 11:14 Respiratory Rate 16 03/25/18 11:14 Blood Pressure 115/69 03/25/18 11:14 O2 Sat (%) 98 03/25/18 11:14 O2 Delivery Mode Room Air Allergies/Adverse Reactions: No Known Allergies Allergy (Verified 03/25/18 11:13) Home Medications: Medication Instructions Recorded ARIPiprazole [Abilify 5 mg (*)] 5 mg PO DAILY 03/04/18 Gabapentin [Neurontin 400 MG (*)] 800 mg PO QID 03/04/18 Oxcarbazepine [Trileptal] 150 mg PO BID 03/04/18 Propranolol HCl [Inderal 20mg (*)] 20 mg PO BID 03/04/18 Methylphenidate HCl [Ritalin 20mg 20 mg PO BID@09,12 03/25/18 (*)] Medical Decision Making - Diagnostics EKG Interpretation: EKG: Complete interpretation has been separately recorded in the [facility] archive. Summary impression: Sinus rhythm, 71 (Jai Estevez) Imaging Results: Imaging Impressions Head CT 03/25/18 13:59 Impression: 1. Normal CT brain without contrast. 2. Consider MRI of the brain, if there is continued clinical concern. Findings and recommendations discussed with Emergency Department physicianKaylynn at 15:06 hour, 03/25/2018. Final report concurs with initial preliminary interpretation. ED Course/Re-evaluation: Care of patient under supervision of primary Supervising physician Dr Estevez with whom I discussed case. 12:40 p.m.: Re-evaluation, patient is highly somnolent. Specifically inquired this time whether she has ingested any other medicines beyond prescribed medicines and she denies this. She denies suicidal homicidal ideation. She is unable to ambulate from bed to the door way secondary to 1:59 p.m.: [facility] Painting, CT imaging will be obtained 2:22 p.m.: Consultation with the patient's psychiatrist Dr. Spring Dang at this time, cell phone [phone] (Kaylynn Alberto) Other Provider: PHYSICIAN DOCUMENTATION: The patient was evaluated and managed by the Physician Bladder Tier. My co- signature indicates that I have reviewed this chart and I agree with the findings and plan of care as documented. I am the secondary supervising physician. (Jai Estevez) - Data Points Laboratory Results: Laboratory Results 03/25/18 11:50 03/25/18 11:50 03/25/18 03/25/18 03/25/18 13:05 11:50 11:50 WBC RBC Hgb Hct MCV MCH MCHC RDW Plt Count MPV Neut % (Auto) Lymph % (Auto) Bucks % (Auto) Eos % (Auto) Baso % (Auto) Nucleat RBC Rel Count Absolute Neuts (auto) Absolute Lymphs (auto) Absolute Monos (auto) Absolute Eos (auto) Absolute Basos (auto) Absolute Nucleated RBC Immature Gran % Immature Gran # Sodium Potassium Chloride Carbon Dioxide Anion Gap BUN Creatinine Estimated GFR Glucose Calcium Total Bilirubin 0.6 mg/dL mg/dL (0.1-1.4) Conjugated Bilirubin 0.6 mg/dL H mg/dL (0.0-0.5) Unconjugated Bilirubin 0.0 mg/dL mg/dL (0.0-1.1) AST 54 IU/L H IU/L (14-46) ALT 15 IU/L IU/L (9-52) Alkaline Phosphatase 121 IU/L IU/L (38-126) Ammonia < 9.0 uMOL/L L uMOL/L (9.0-30.0) Creatine Kinase 230 IU/L H IU/L (0-156) CK-MB (CK-2) Fraction 4.21 ng/mL ng/mL (0.00-4.55) CK-MB (CK-2) % 1.8 % % (0.0-4.0) Creatine Kinase Interp NEGATIVE (NEGATIVE) Total Protein 6.9 g/dL g/dL (6.3-8.2) Albumin 4.0 g/dL g/dL (3.5-5.0) TSH 0.784 uIU/mL uIU/mL (0.465-4.680) Salicylates < 1.0 mg/dL L mg/dL (2.0-20.0) Acetaminophen < 10 mcg/mL L mcg/mL (10-30) Ethyl Alcohol 03/25/18 03/25/18 11:50 11:50 WBC 5.13 10^3/uL 10^3/uL (3.80-9.50) RBC 4.00 10^6/uL L 10^6/uL (4.18-5.33) Hgb 12.5 g/dL L g/dL (12.6-16.3) Hct 36.3 % L % (38.0-47.0) MCV 90.8 fL fL (81.5-99.8) MCH 31.3 pg pg (27.9-34.1) MCHC 34.4 g/dL g/dL (32.4-36.7) RDW 12.9 % % (11.5-15.2) Plt Count 296 10^3/uL 10^3/uL (150-400) MPV 7.6 fL L fL (8.7-11.7) Neut % (Auto) 51.2 % % (39.3-74.2) Lymph % (Auto) 35.7 % % (15.0-45.0) Bucks % (Auto) 8.6 % % (4.5-13.0) Eos % (Auto) 3.1 % % (0.6-7.6) Baso % (Auto) 1.0 % % (0.3-1.7) Nucleat RBC Rel Count 0.0 % % (0.0-0.2) Absolute Neuts (auto) 2.63 10^3/uL 10^3/uL (1.70-6.50) Absolute Lymphs (auto) 1.83 10^3/uL 10^3/uL (1.00-3.00) Absolute Monos (auto) 0.44 10^3/uL 10^3/uL (0.30-0.80) Absolute Eos (auto) 0.16 10^3/uL 10^3/uL (0.03-0.40) Absolute Basos (auto) 0.05 10^3/uL 10^3/uL (0.02-0.10) Absolute Nucleated RBC 0.00 10^3/uL 10^3/uL (0-0.01) Immature Gran % 0.4 % % (0.0-1.1) Immature Gran # 0.02 10^3/uL 10^3/uL (0.00-0.10) Sodium 139 mEq/L mEq/L (135-145) Potassium 4.3 mEq/L mEq/L (3.5-5.2) Chloride 107 mEq/L mEq/L (97-110) Carbon Dioxide 26 mEq/l mEq/l (22-31) Anion Gap 6 mEq/L mEq/L (6-14) BUN 19 mg/dL mg/dL (7-23) Creatinine 0.7 mg/dL mg/dL (0.6-1.0) Estimated GFR > 60 Glucose 80 mg/dL mg/dL (70-100) Calcium 8.7 mg/dL mg/dL (8.5-10.4) Total Bilirubin Conjugated Bilirubin Unconjugated Bilirubin AST ALT Alkaline Phosphatase Ammonia Creatine Kinase CK-MB (CK-2) Fraction CK-MB (CK-2) % Creatine Kinase Interp Total Protein Albumin TSH Salicylates Acetaminophen Ethyl Alcohol < 10 mg/dL mg/dL (0-10) Medications Given: Discontinued Medications Sodium Chloride (Ns) 1,000 mls @ 0 mls/hr IV EDNOW ONE; Wide Open PRN Reason: Protocol Stop: 03/25/18 13:36 Last Admin: 03/25/18 13:42 Dose: 1,000 mls Departure - Departure Disposition: [facility] Acute Clinical Impression: Encephalopathy acute Condition: Fair
[2018-03-25 12:00] LABS: PLATELET COUNT 296 10^3/uL (150-400)
[2018-03-25] MEDS ORDERED: NS 1,000 ML IV ONE (13:35)
--- NOTE | 2018-03-25 14:34 | CPEKG ---
Test Reason : OPEN Blood Pressure : / mmHG Vent. Rate : 071 BPM Atrial Rate : 072 BPM P-R Int : 169 ms QRS Dur : 087 ms QT Int : 429 ms P-R-T Axes : 076 075 045 degrees QTc Int : 467 ms Sinus rhythm Confirmed by Jai Estevez ([id number]) on 03/25/2018 2:34:27 PM Referred By: Jai Estevez Confirmed By:Jai Estevez
[2018-03-25] MEDS ORDERED: ONDANSETRON DISINTEGRATING 4 MG TAB PO PRN (14:36)
[2018-03-25] MEDS ORDERED: ACETAMINOPHEN 325 MG TAB PO PRN (14:36)
[2018-03-25] MEDS ORDERED: ONDANSETRON 4 MG/2 ML VIAL IVP PRN (14:36)
--- NOTE | 2018-03-25 14:44 | PDGENHP ---
History and Physical - Chief Complaint somnolence - History of Present Illness 38yo F with history of alcoholism, ? mood disorder, recent hospitalization for etoh withdrawal presents with somnolence and slurred speech. She is arousable and answering questions mostly appropriately but falls asleep easily. States that she restarted taking her abilify, gabapentin, and trileptal after being discharged on 03/08. She was not reliably taking these prior to recent hospital stay due to her etoh abuse. Since starting these meds, she has been extremely tired and sleeping at odd times. Her psychiatrist, Dr Spring Dang, dose reduced her trileptal from 300 to 150mg daily about a week ago. Her symptoms have persisted and Dr Dang recommended she go to the ED today. Airam denies any etoh use since leaving the hospital. She was discharged with a librium taper and states she took "about half" of the pills. She denies any suicidal ideation. She has been taking her mediations as prescribed. Denies illicit substances. Denies [id number] meds. No fevers, chills, headache, neck stiffness/pain. I spoke with her father (with the patient's consent) who corroborates much of the above history. He reports her being confused and not knowing what time of day it is intermittently. He does not think she's been drinking. He does add that he has found several benzedrex inhalers around her house (active ingredient is amphetamine derivative). In the ED, she had normal vital signs and grossly normal labs and a negative ethyl alcohol level, however, she was disoriented and unable to safely ambulate. She is being admitted for further evaluation and monitoring. History Information - Allergies/Home Medication List Allergies/Adverse Reactions: No Known Allergies Allergy (Verified 03/25/18 11:13) Home Medications: ARIPiprazole [Abilify 5 mg (*)] 5 mg PO DAILY 03/04/18 [Last Taken 03/25/18] Gabapentin [Neurontin 400 MG (*)] 800 mg PO QID 03/04/18 [Last Taken 03/25/18] Oxcarbazepine [Trileptal] 150 mg PO BID 03/04/18 [Last Taken 03/25/18] Propranolol HCl [Inderal 20mg (*)] 20 mg PO BID 03/04/18 [Last Taken 03/25/18] Methylphenidate HCl [Ritalin 20mg (*)] 20 mg PO BID@09,12 03/25/18 [Last Taken 03/25/18] I have personally reviewed and updated: family history, medical history, social history, surgical history - Past Medical History Additional medical history: alcoholism with history of withdrawal, mood/bipolar disorder (followed by Dr Spring Dang) - Surgical History Reports: no pertinent surgical hx - Family History Additional family history: mother - alcohol abuse, grandfather - parkinsons - Social History Smoking Status: Former smoker Alcohol Use: Other (Sober since 03/04/2018) Drug Use: None Additional social history: . She has 3 boys and raises them. Father just recently moved to [facility] to help. Review of Systems Review of Systems: ROS: 10pt was reviewed & negative except for what was stated in HPI & below Physical Exam Physical Exam: Temp Pulse Resp BP Pulse Ox 36.7 C 69 16 96/58 L 98 03/25/18 11:14 03/25/18 13:00 03/25/18 13:00 03/25/18 13:00 03/25/18 13:00 Constitutional: no apparent distress, appears nourished, other (somnolent but arousable) Eyes: PERRL, anicteric sclera, EOMI Ears, Nose, Mouth, Throat: moist mucous membranes, no oral mucosal ulcers Cardiovascular: regular rate and rhythym, no murmur, rub, or gallop, No edema Respiratory: no respiratory distress, no rales or rhonchi, clear to auscultation Gastrointestinal: normoactive bowel sounds, soft, non-tender abdomen, no palpable masses Genitourinary: no bladder fullness, no bladder tenderness Skin: warm, normal color, no rashes or abrasions, no fluctuance, no induration, No mottled Musculoskeletal: full muscle strength, no muscle tenderness, normal joint ROM, no joint effusions Neurologic: sensation intact bilaterally, CN II-XII Intact, other (alert, oriented only to self (thought she was at [place], thought it was Mar 2016), normal cerebellar exam, no clonus, no rigidity), No weakness, No numbness, No pronator drift, No asterixes, No facial droop Psychiatric: encephalopathic Lab Data & Imaging Review 03/25/18 11:50 03/25/18 11:50 WBC 5.13 10^3/uL (3.80-9.50) 03/25/18 11:50 RBC 4.00 10^6/uL (4.18-5.33) L 03/25/18 11:50 Hgb 12.5 g/dL (12.6-16.3) L 03/25/18 11:50 Hct 36.3 % (38.0-47.0) L 03/25/18 11:50 MCV 90.8 fL (81.5-99.8) 03/25/18 11:50 MCH 31.3 pg (27.9-34.1) 03/25/18 11:50 MCHC 34.4 g/dL (32.4-36.7) 03/25/18 11:50 RDW 12.9 % (11.5-15.2) 03/25/18 11:50 Plt Count 296 10^3/uL (150-400) 03/25/18 11:50 MPV 7.6 fL (8.7-11.7) L 03/25/18 11:50 Neut % (Auto) 51.2 % (39.3-74.2) 03/25/18 11:50 Lymph % (Auto) 35.7 % (15.0-45.0) 03/25/18 11:50 [place] % (Auto) 8.6 % (4.5-13.0) 03/25/18 11:50 Eos % (Auto) 3.1 % (0.6-7.6) 03/25/18 11:50 Baso % (Auto) 1.0 % (0.3-1.7) 03/25/18 11:50 Nucleat RBC Rel Count 0.0 % (0.0-0.2) 03/25/18 11:50 Absolute Neuts (auto) 2.63 10^3/uL (1.70-6.50) 03/25/18 11:50 Absolute Lymphs (auto) 1.83 10^3/uL (1.00-3.00) 03/25/18 11:50 Absolute Monos (auto) 0.44 10^3/uL (0.30-0.80) 03/25/18 11:50 Absolute Eos (auto) 0.16 10^3/uL (0.03-0.40) 03/25/18 11:50 Absolute Basos (auto) 0.05 10^3/uL (0.02-0.10) 03/25/18 11:50 Absolute Nucleated RBC 0.00 10^3/uL (0-0.01) 03/25/18 11:50 Immature Gran % 0.4 % (0.0-1.1) 03/25/18 11:50 Immature Gran # 0.02 10^3/uL (0.00-0.10) 03/25/18 11:50 Sodium 139 mEq/L (135-145) 03/25/18 11:50 Potassium 4.3 mEq/L (3.5-5.2) 03/25/18 11:50 Chloride 107 mEq/L (97-110) 03/25/18 11:50 Carbon Dioxide 26 mEq/l (22-31) 03/25/18 11:50 Anion Gap 6 mEq/L (6-14) 03/25/18 11:50 BUN 19 mg/dL (7-23) 03/25/18 11:50 Creatinine 0.7 mg/dL (0.6-1.0) 03/25/18 11:50 Estimated GFR > 60 03/25/18 11:50 Glucose 80 mg/dL (70-100) 03/25/18 11:50 Calcium 8.7 mg/dL (8.5-10.4) 03/25/18 11:50 Total Bilirubin 0.6 mg/dL (0.1-1.4) 03/25/18 11:50 Conjugated Bilirubin 0.6 mg/dL (0.0-0.5) H 03/25/18 11:50 Unconjugated Bilirubin 0.0 mg/dL (0.0-1.1) 03/25/18 11:50 AST 54 IU/L (14-46) H 03/25/18 11:50 ALT 15 IU/L (9-52) 03/25/18 11:50 Alkaline Phosphatase 121 IU/L (38-126) 03/25/18 11:50 Ammonia < 9.0 uMOL/L (9.0-30.0) L 03/25/18 13:05 Total Protein 6.9 g/dL (6.3-8.2) 03/25/18 11:50 Albumin 4.0 g/dL (3.5-5.0) 03/25/18 11:50 Salicylates < 1.0 mg/dL (2.0-20.0) L 03/25/18 11:50 Acetaminophen < 10 mcg/mL (10-30) L 03/25/18 11:50 Ethyl Alcohol < 10 mg/dL (0-10) 03/25/18 11:50 Assessment & Plan Assessment: 38yo F with history of alcoholism, ? mood disorder, recent hospitalization for etoh withdrawal presents with somnolence and slurred speech. Plan: 1. Acute toxic encephalopathy: Non-focal neurologic exam. Suspect driven by re- initiation of numerous centrally acting meds after she stopped drinking. No rigidity or autonomic dysregulation to suspect NMS/serotonin syndrome. Exam and vitals not c/w anti-cholinergic/sympathomimetic toxidrome. - Spoke with toxicology (case #[id number]) who recommend observation. No need for serial labs or checking trileptal levels, etc - Follow up utox, TSH, non-con CT head 2. Mood/bipolar disorder: Followed by psychiatrist Srping Dang - Holding thea ahnl - Contact psych team in AM to discuss resumption of meds 3. Etoh abuse: No signs of intoxication or withdrawal. Alcohol level negative. - Holding gabapentin (which she was reportedly on to reduce cravings) VTE ppx: SCDs Code: full Diet: regular Dispo: Admit under observation
[2018-03-25 14:48] LABS: CREATINE KINASE 230 IU/L (0-156)
--- NOTE | 2018-03-25 19:04 | ASMTCMCOM ---
CM Note CM Note Notes: Pt presented to the ED through triage for somnolence and intermittent confusion. Pt had recently been admitted 03/04-03/08/18 for ETOH withdrawal. Please see past H&P, CM Reports, Family Meeting Note, etc. Pt's BAL came back 0 and her labs are WNL, but pt remains confused/disoriented and unable to ambulate safely. Pt admitted for acute toxic encephelopathy and further monitoring. Pt was brought in by her father, Abilio; he says he called pt's psychiatrist, Spring Dang ([phone]) this morning because he was concerned about the pt's slurred speech and excessive lethargy. Dr Dang reportedly decreased pt's Trileptal about a week ago so she recommended the pt come to the ED and have her labs drawn. Initially, the pt wanted Abilio to remain in the waiting area "so I can have some privacy," but gave permission to provide updates re:her care. This CM spoke w/Abilio in the waiting area. Abilio states he and the patient are starting to have increased friction and tension re: maintaining pt's sobriety and mental health stability. Abilio mentioned that the pt drove her 3 boys (ages 12, 10, and 8) to their father's house in [place] (from her home in [place]) which he states "is very unusual for her because she has shared custody and she is supposed to have the kids today." Abilio mentioned pt may have been abusing Benzedrex inhalers which have an amphetamine derivative. Exact DC needs TBD but anticipate pt to stabilize and DC home w/family and to followup w/her psychiatrist and other outpatient providers (pt's longtime therapist is Fang Caldwell and pt's PCP is listed as Elliott Moura). Consider a Behavioral Health RN consult and/or another Family Meeting if the care team thinks it would be beneficial. CM to follow. Date Signed: 03/25/2018 07:03 PM Electronically Signed By:Anna Waggoner RN
--- NOTE | 2018-03-26 11:33 | PDDCSUM ---
Discharge Summary Discharge Summary: Discharge diagnosis toxic encephalopathy Bipolar disorder etoh abuse altered mental status Airam Grubbs is a 38 year old female with pmh of etoh abuse, bipolar disorder who was admitted with acute encephalopathy and confusion. She has been on abilify, neurontin and oxcarbazapine for some time. she had progressive lethargy and somnolence. she had been on a higher dose of trileptal due to severe lethargy but it was titrated down from 300 bid to 150 bid. she continued to have lethargy and confusion. she was evaluated in the ER and a ct of the head showed no acute abnormality. Her trileptal, neurontin and abilify were held and within 24 hours she was much more awake and was oriented X3. Her trileptal was stopped altogether and she was discharged home to follow up wtih her psychiatrist and PCP. Disposition-- home Discharge medications Abilify 5 mg bid Neurontin 800 QID Follow up- Psychiatry and PCP.
[2018-03-26 11:50] VITALS: BP 120/81
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
--- NOTE | 2018-03-26 12:43 | ASMTCMCOM ---
CM Note CM Note Notes: Pt medically stable for d/c with family and follow up with established psychiatrist, therapist, PCP and such. No CM d/c needs identified. Date Signed: 03/26/2018 12:43 PM Electronically Signed By:BEATRIZ Flood
== END 2018-03-26 12:18 | disposition home or self-care (01) ==
LOC: F3N 15:26
PROVIDERS: ADMIT Internal Medicine; ATTEND Internal Medicine
DX: G92 Toxic encephalopathy (principal); F31.9 Bipolar disorder, unspecified; E86.9 Volume depletion, unspecified; F10.21 Alcohol dependence, in remission; F43.10 Post-traumatic stress disorder, unspecified; F41.9 Anxiety disorder, unspecified; Z87.891 Personal history of nicotine dependence; Z23 Encounter for immunization
CPT/HCPCS: 70450; 90471; 93005; 96360; 96372; 99285; G0378; 80305; G0008; G0480

== ENCOUNTER 2018-03-27 09:12 | Observation (INO) | payer OTHER ==
[2018-03-27 09:33] LABS: PLATELET COUNT 308 10^3/uL (150-400)
--- NOTE | 2018-03-27 09:33 | EDPHY ---
H & P Time Seen by Provider: 03/27/18 09:18 HPI/ROS: CHIEF COMPLAINT: Lethargy HISTORY OF PRESENT ILLNESS: Patient had recent admission in February both for alcohol withdrawal and then for encephalopathy thought due to medications. She has not had trileptal since Monday morning. She was discharged yesterday. Her father was with her last night around 7:00 p.m. And said she was pretty much normal but this morning found her lethargic and having difficulty walking with some slurred speech. Patient denies headache or alcohol ingestion. She says she has a little bit of back pain and her biceps hurt, but no headache. No neck pain. No visual symptoms. REVIEW OF SYSTEMS: Eye: no change in vision ENT: no sore throat Cardiac: no chest pain or syncope Pulmonary: no cough or SOB Abdomen: no vomiting, diarrhea, abdominal pain Musculoskeletal: HPI Skin: no rash Neuro: no headache Constitutional: no fever : no urinary symptoms A comprehensive 10 point review of systems is otherwise negative aside from elements mentioned in the history of present illness. PAST MEDICAL HISTORY: Alcoholism and bipolar disorder Social history: Denies recent alcohol here with her father General Appearance: Alert and conversant, cooperative. Eyes: No scleral icterus. ENT, Mouth: Normal mucous membranes. No tongue laceration or abrasion. Respiratory: Normal respiratory effort, breath sounds equal, lungs are clear to auscultation. Cardiovascular: Regular rate and rhythm. Gastrointestinal: Abdomen is soft and non tender. Neurological: Patient is alert and knows it is 2018 and that it is March. She can follow commands. Sfyfsn-[id number]-hguf normal bilaterally, she can stand at the side of the bed and Romberg is negative but she is unsteady while walking. She has slurred speech. Face is symmetric. Skin: Faint erythema all over her body but no urticaria, no petechiae or purpura. Musculoskeletal: No peripheral edema. Normal range of motion of the neck, no meningeal signs. Psychiatric: Not agitated. Emergency Department course/MDM: More likely to be metabolic or toxic, I think that acute ischemic stroke or intracranial hemorrhage or vascular dissection is unlikely. 951: Chemistry reviewed, ethanol negative. Neurology consult by phone; Dr. Lemon recommends admit, no further emergent imaging, will consult. Admission for further evaluation and Neurology consultation. Smoking Status: Former smoker Constitutional: Initial Vital Signs Temperature (C) 36.6 C 03/27/18 09:17 Heart Rate 78 03/27/18 09:17 Respiratory Rate 18 03/27/18 09:17 Blood Pressure 117/89 H 03/27/18 09:17 O2 Sat (%) 100 03/27/18 09:17 O2 Delivery Mode Room Air Allergies/Adverse Reactions: No Known Allergies Allergy (Verified 03/25/18 11:13) Home Medications: Medication Instructions Recorded ARIPiprazole [Abilify 5 mg (*)] 5 mg PO DAILY 03/04/18 Gabapentin [Neurontin 400 MG (*)] 800 mg PO QID 03/04/18 Propranolol HCl [Inderal 20mg (*)] 20 mg PO BID 03/04/18 Methylphenidate HCl [Ritalin 20mg 20 mg PO BID@03/25/18 (*)] Medical Decision Making Consult/Admit Bed Type: [place] [id number] Dominguez - Data Points Laboratory Results: Laboratory Results 03/27/18 09:25 03/27/18 09:25 03/27/18 03/27/18 03/27/18 09:28 09:25 09:25 WBC RBC Hgb Hct MCV MCH MCHC RDW Plt Count MPV Neut % (Auto) Lymph % (Auto) [place] % (Auto) Eos % (Auto) Baso % (Auto) Nucleat RBC Rel Count Absolute Neuts (auto) Absolute Lymphs (auto) Absolute Monos (auto) Absolute Eos (auto) Absolute Basos (auto) Absolute Nucleated RBC Immature Gran % Immature Gran # Turbidity Cancelled Sodium Cancelled Potassium Cancelled Chloride Cancelled Carbon Dioxide Cancelled Anion Gap Cancelled BUN Cancelled Creatinine Cancelled Estimated GFR Cancelled Glucose Cancelled POC Glucose Calcium Cancelled Magnesium 1.9 mg/dL mg/dL (1.6-2.3) Total Bilirubin Cancelled Icterus Index Cancelled AST Cancelled ALT Cancelled Alkaline Phosphatase Cancelled Total Protein Cancelled Albumin Cancelled TSH 1.680 uIU/mL uIU/mL (0.465-4.680) Beta HCG, Qual NEGATIVE Oxcarbazepine Pending Gabapentin Pending Ethyl Alcohol 03/27/18 03/27/18 03/27/18 09:25 09:25 09:18 WBC 5.52 10^3/uL 10^3/uL (3.80-9.50) RBC 4.49 10^6/uL 10^6/uL (4.18-5.33) Hgb 13.9 g/dL g/dL (12.6-16.3) Hct 41.3 % % (38.0-47.0) MCV 92.0 fL fL (81.5-99.8) MCH 31.0 pg pg (27.9-34.1) MCHC 33.7 g/dL g/dL (32.4-36.7) RDW 12.9 % % (11.5-15.2) Plt Count 308 10^3/uL 10^3/uL (150-400) MPV 7.7 fL L fL (8.7-11.7) Neut % (Auto) 47.6 % % (39.3-74.2) Lymph % (Auto) 39.9 % % (15.0-45.0) [place] % (Auto) 10.0 % % (4.5-13.0) Eos % (Auto) 1.6 % % (0.6-7.6) Baso % (Auto) 0.7 % % (0.3-1.7) Nucleat RBC Rel Count 0.0 % % (0.0-0.2) Absolute Neuts (auto) 2.63 10^3/uL 10^3/uL (1.70-6.50) Absolute Lymphs (auto) 2.20 10^3/uL 10^3/uL (1.00-3.00) Absolute Monos (auto) 0.55 10^3/uL 10^3/uL (0.30-0.80) Absolute Eos (auto) 0.09 10^3/uL 10^3/uL (0.03-0.40) Absolute Basos (auto) 0.04 10^3/uL 10^3/uL (0.02-0.10) Absolute Nucleated RBC 0.00 10^3/uL 10^3/uL (0-0.01) Immature Gran % 0.2 % % (0.0-1.1) Immature Gran # 0.01 10^3/uL 10^3/uL (0.00-0.10) Turbidity Sodium 140 mEq/L mEq/L (135-145) Potassium 4.6 mEq/L mEq/L (3.5-5.2) Chloride 109 mEq/L mEq/L (97-110) Carbon Dioxide 23 mEq/l mEq/l (22-31) Anion Gap 8 mEq/L mEq/L (6-14) BUN 11 mg/dL mg/dL (7-23) Creatinine 0.7 mg/dL mg/dL (0.6-1.0) Estimated GFR > 60 Glucose 89 mg/dL mg/dL (70-100) POC Glucose 75 mg/dL mg/dL (70-100) Calcium 8.6 mg/dL mg/dL (8.5-10.4) Magnesium Total Bilirubin Icterus Index AST ALT Alkaline Phosphatase Total Protein Albumin TSH Beta HCG, Qual Oxcarbazepine Gabapentin Ethyl Alcohol < 10 mg/dL mg/dL (0-10) Point of Care Test Results: Chemistry 03/27/18 09:18 POC Glucose 75 mg/dL mg/dL (70-100) Departure - Departure Disposition: [facility] Inpatient Acute Clinical Impression: Encephalopathy acute Condition: Fair
[2018-03-27] MEDS ORDERED: ONDANSETRON DISINTEGRATING 4 MG TAB PO PRN (10:46)
[2018-03-27] MEDS ORDERED: ACETAMINOPHEN 325 MG TAB PO PRN (10:46)
[2018-03-27] MEDS ORDERED: ONDANSETRON 4 MG/2 ML VIAL IVP PRN (10:46)
--- NOTE | 2018-03-27 10:55 | PDGENHP ---
History and Physical - Chief Complaint Altered mental status - History of Present Illness Patient is a 38-year-old female with past medical history of bipolar disorder who was just discharged yesterday after what was thought to be admission for toxic encephalopathy was brought back in by her father this morning after he noticed that his daughter was extremely lethargic, confused and off balance. On her previous admission it was thought that her try left dual was causing her symptoms of encephalopathy. Her trial of to was stopped she was discharged home yesterday awake alert and with no further confusion or lethargy. Her father took her home, they cook cold meat together, and he left her to go back to her apartment. When he checked on her this morning he said that she was very difficult to arouse extremely lethargic and off balance when he got her up. He said she did not seem like herself and so brought her back to the emergency room. She said she took her Abilify last night but could not remember if she took her Neurontin. She denied taking any other illicit substances, or drinking any alcohol. She said transiently this morning she had some kidney pain, which when I asked her to specify was actually mild bilateral flank pain, but denied any dysuria, hematuria or other symptoms. That pain has since resolved. She says she did not take her oxcarbazepine. History Information - Allergies/Home Medication List Allergies/Adverse Reactions: No Known Allergies Allergy (Verified 03/25/18 11:13) Home Medications: ARIPiprazole [Abilify 5 mg (*)] 5 mg PO DAILY 03/04/18 [Last Taken 03/26/18] Gabapentin [Neurontin 400 MG (*)] 800 mg PO QID 03/04/18 [Last Taken 03/26/18 21 :00] Propranolol HCl [Inderal 20mg (*)] 20 mg PO BID 03/04/18 [Last Taken 03/26/18 21 :00] Methylphenidate HCl [Ritalin 20mg (*)] 20 mg PO BID@,12 03/25/18 [Last Taken 03/26/18] I have personally reviewed and updated: family history, medical history, social history, surgical history - Past Medical History Additional medical history: alcoholism with history of withdrawal, mood/bipolar disorder (followed by Dr Spring Dang) - Surgical History Reports: no pertinent surgical hx - Family History Positive for: non-pertinent Additional family history: mother - alcohol abuse, grandfather - parkinsons - Social History Smoking Status: Former smoker Additional social history: . She has 3 boys and raises them. Father just recently moved to [facility] to help. Review of Systems Review of Systems: ROS: 10pt was reviewed & negative except for what was stated in HPI & below Physical Exam Physical Exam: Temp Pulse Resp BP Pulse Ox 36.6 C 75 16 103/65 97 03/27/18 09:17 03/27/18 10:11 03/27/18 10:11 03/27/18 10:11 03/27/18 10:11 Constitutional: other (Lethargic with slurred speech.) Eyes: PERRL, anicteric sclera, EOMI Ears, Nose, Mouth, Throat: moist mucous membranes, hearing normal, ears appear normal, no oral mucosal ulcers Cardiovascular: regular rate and rhythym, no murmur, rub, or gallop, No edema Respiratory: no respiratory distress, no rales or rhonchi, clear to auscultation Gastrointestinal: normoactive bowel sounds, soft, non-tender abdomen, no palpable masses Genitourinary: no bladder fullness, no bladder tenderness Skin: warm, normal color, no rashes or abrasions, no fluctuance, no induration, No mottled Musculoskeletal: full muscle strength, no muscle tenderness, normal joint ROM, no joint effusions Neurologic: AAOx3, other (Slurred speech and lethargic. She is alert and oriented x3. Mild asterixis on exam.) Psychiatric: encephalopathic Lymph, Heme, Immunologic: no cervical LAD, no supraclavicular LAD Lab Data & Imaging Review 03/27/18 09:25 03/27/18 09:25 WBC 5.52 10^3/uL (3.80-9.50) 03/27/18 09:25 RBC 4.49 10^6/uL (4.18-5.33) 03/27/18 09:25 Hgb 13.9 g/dL (12.6-16.3) 03/27/18 09:25 Hct 41.3 % (38.0-47.0) 03/27/18 09:25 MCV 92.0 fL (81.5-99.8) 03/27/18 09:25 MCH 31.0 pg (27.9-34.1) 03/27/18 09:25 MCHC 33.7 g/dL (32.4-36.7) 03/27/18 09:25 RDW 12.9 % (11.5-15.2) 03/27/18 09:25 Plt Count 308 10^3/uL (150-400) 03/27/18 09:25 MPV 7.7 fL (8.7-11.7) L 03/27/18:25 Neut % (Auto) 47.6 % (39.3-74.2) 03/27/18:25 Lymph % (Auto) 39.9 % (15.0-45.0) 03/27/18:25 [place] % (Auto) 10.0 % (4.5-13.0) 03/27/18:25 Eos % (Auto) 1.6 % (0.6-7.6) 03/27/18: Baso % (Auto) 0.7 % (0.3-1.7) 03/27/18 09: Nucleat RBC Rel Count 0.0 % (0.0-0.2) 03/27/18 09:25 Absolute Neuts (auto) 2.63 10^3/uL (1.70-6.50) 03/27/18 09:25 Absolute Lymphs (auto) 2.20 10^3/uL (1.00-3.00) 03/27/18 09:25 Absolute Monos (auto) 0.55 10^3/uL (0.30-0.80) 03/27/18 09:25 Absolute Eos (auto) 0.09 10^3/uL (0.03-0.40) 03/27/18:25 Absolute Basos (auto) 0.04 10^3/uL (0.02-0.10) 03/27/18:25 Absolute Nucleated RBC 0.00 10^3/uL (0-0.01) 03/27/18:25 Immature Gran % 0.2 % (0.0-1.1) 03/27/18 09:25 Immature Gran # 0.01 10^3/uL (0.00-0.10) 03/27/18 09:25 Sodium 140 mEq/L (135-145) 03/27/18 09:25 Potassium 4.6 mEq/L (3.5-5.2) 03/27/18 09:25 Chloride 109 mEq/L (97-110) 03/27/18 09:25 Carbon Dioxide 23 mEq/l (22-31) 03/27/18 09:25 Anion Gap 8 mEq/L (6-14) 03/27/18 09:25 BUN 11 mg/dL (7-23) 03/27/18 09:25 Creatinine 0.7 mg/dL (0.6-1.0) 03/27/18 09:25 Estimated GFR > 60 03/27/18 09:25 Glucose 89 mg/dL (70-100) 03/27/18:25 POC Glucose 75 mg/dL (70-100) 03/27/18 09:18 Calcium 8.6 mg/dL (8.5-10.4) 03/27/18 09:25 Beta HCG, Qual NEGATIVE 03/27/18 09:25 Ethyl Alcohol < 10 mg/dL (0-10) 03/27/18 09:25 Assessment & Plan Assessment: Encephalopathy acute (Acute)-patient was just discharged yesterday for this. Thought to be due to her ox carbamazepine which was stopped on discharge yesterday. When I discharged her yesterday she was alert and oriented and had no balance problems and no symptoms of lethargy or confusion. Labs so far have been normal. Case was discussed with the emergency room physician and Neurology has been consulted who recommended a brain MRI and they will see the patient. Patient has a history of alcoholism and I still question whether not she could have ingested something. Per her father she used to drink mouthwash and she could have consumed something that we are not able to measure although she denies this. She has been on Abilify and Neurontin for at least 6 months without the symptoms. -check urine tox screen -check full metabolic panel including liver function tests -brain MRI -Neurology to see -hold Abilify and Neurontin Bipolar disorder- on Abilify and Neurontin which may be contributing to her current symptoms of lethargy and encephalopathy. Will hold both for now Essential tremor- continue propranolol Prophylaxis- SCDs and heparin Fluids- IV saline Electrolytes- within normal limits Nutrition -regular diet Code status -full code Disposition- observation for encephalopathy
[2018-03-27] MEDS ORDERED: NS 1,000 ML IV SCH (11:00)
--- NOTE | 2018-03-27 11:33 | ASMTLACE ---
MOOSE Length of stay for Answers: 1 day current admission Acuity / Level of Answers: Yes Care: Did the patient have an inpatient admission? # of Emergency department Answers: 3-4 visits in the last 6 months Social determinants Answers: History of substance abuse (ETOH, street drugs, prescription drugs, etc.) Mental health diagnosis (anxiety, depression, pers onality disorders, etc.) Score: 13 Date Signed: 03/27/2018 11:19 AM Electronically Signed By:Latricia Morales LCSW
--- NOTE | 2018-03-27 11:54 | NEUROPROG ---
Assessment: Brain MRI and tox screen pending to evaluate confusion. I will see pt tomorrow morning for initial consult but I can come sooner if clinically needed. Please contact neurology oncall ([phone]) for any questions. Objective: Vital Signs Temp Pulse Resp BP Pulse Ox 36.6 C 77 18 114/74 100 03/27/18 11:41 03/27/18 11:41 03/27/18 11:41 03/27/18 11:41 03/27/18 11:41 Allergies/Adverse Reactions: No Known Allergies Allergy (Verified 03/25/18 11:13)
[2018-03-27] MEDS ORDERED: GADOBUTROL 10 ML VIAL IVP ONE (14:48)
[2018-03-28 05:37] LABS: PLATELET COUNT 274 10^3/uL (150-400)
[2018-03-28] MEDS ORDERED: ENOXAPARIN 40 MG/0.4 ML SYR SC SCH (09:00)
--- NOTE | 2018-03-28 09:53 | NEUROPROG ---
Assessment: [id number] - Neurology Consult: - CC: Adonis Prince consulted neurology for altered mental status. Results placed in EMR for her review. - HPI: Pt with PMHx of alcohol abuse/withdrawal and bipolar d/o (on multiple psych drugs) admitted for complaints of altered mental status (Fatigue, confusion) 03/27. She was recently admitted on 03/25/18 to [facility] for altered mental status felt to be toxic metabolic encephalopathy from underlying alcohol abuse, bipolar d/o , and possible med side effects. Trileptal had been stopped and pt improved so she was discharged on 03/26/18. Head CT on 03/25/18 was normal. I initially saw the patient on 03/28/18. Her neurologic exam was normal. Brain MRI wwo was normal. UTox was positive for benzodiazepines and amphetamines. Pt reported benzos are from recent treatment of alcohol abuse and that amphetamines are secondary to a stimulant nasal spray she had been overusing as a primary stimulant. I suspect her altered mental status is most likely from this stimulant use. Recommend cessation of this stimulant with expectation of improvement if she can avoid further use as well as abstaining from alcohol and working closely with outpatient psych for excellent bipolar control. Neurology will sign off. - PMHx: bipolar d/o (Followed by Dr. Dang), alcohol abuse Home Meds: abilify, gabapentin, Inderal, RItalin, - SHx: alcohol abuse, with 3 children FHx: PD, alcoholism - ROS: Pt denied acute fever, total vision loss, active severe chest pain, respiratory failure, total body severe rash, total bowel/bladder incontinence, psychosis, active seizures, or active bleeding - O: VS reviewed General: Alert Eyes: Fundoscopic exam not able to visualize optic disks CV: Heart RRR, no murmur, no carotid bruit Lungs: Clear to auscultation bilaterally, no rhonchi or rales Neuro: - Mental: . Oriented x person/place/date . concentration appears normal . speech fluency/comprehension normal . memory appears normal . fund of knowledge appear intact - Cranial Nerves: . II: PERRL, VFFTC . III/IV/: EOMI, no nystagmus, normal smooth pursuits, no Ptosis . V: facial sensation intact to LT . VII: face symmetric to eye closure and smile . VIII: hearing intact to conversation . IX/X: uvula raises symmetrically . XI: SCM 5/5 B/L strength . XII: tongue protrudes midline w/nl strength - Motor: . Tone: normal tone in all 4 extremity . 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 Altered Mental Status in setting of positive UTox for amphetamines and benzodiazepines on 03/27/18 2. Bipolar D/O 3. History of alcoholism - Plan: - recommend drug/alcohol cessation - Work closely with otpt psych to obtain excellent bipolar d/o control as well as provide treatment for addiction if needed - No further neurologic w/u needed, neurology will sign off Objective: Vital Signs Temp Pulse Resp BP Pulse Ox 36.5 C 87 16 112/63 95 03/28/18 07:33 03/28/18 07:33 03/28/18 07:33 03/28/18 07:33 03/28/18 07:33 Laboratory Results 03/28/18 05:28 03/28/18 05:28 03/27/18 03/28/18 03/29/18 05:59 05:59 05:59 Intake Total 1829 Output Total 100 200 Balance 1729 -200 Allergies/Adverse Reactions: No Known Allergies Allergy (Verified 03/25/18 11:13)
--- NOTE | 2018-03-28 10:45 | PDIAF ---
- Diagnosis Code Status: Full Code - Medication Management Discharge Medications: electronically signed and located in the Home Medication List. - Orders Services needed: Home Care, Physical Therapy, Occupational Therapy Home Care Face to Face: I certify that this patient was under my care and that I had the required [id number] encounter meeting the encounter requirements on the discharge day. My findings support the fact that the patient is homebound as defined in Home Care Face to Face Continued: CMS Chapter 7 Medicare Benefits Manual 30.1.1 , The condition of the patient is such that there exists a normal inability to leave home and consequently, leaving home would require a considerable and taxing effort. Diet Recommendation: no restrictions on diet Diet Texture: Regular Texture Diet Additional Instructions: stop taking sedating medications. stop alcohol or illicit drug use. follow up with your pcp. - Follow Up Care Current Providers and Referrals: BILL BEDOYA [Primary Care Provider] - As per Instructions
[2018-03-28 11:16] VITALS: BP 114/76
--- NOTE | 2018-03-28 13:17 | ASMTLACE ---
MOOSE Length of stay for Answers: 2 days current admission Acuity / Level of Answers: Yes Care: Did the patient have an inpatient admission? # of Emergency department Answers: 3-4 visits in the last 6 months Social determinants Answers: History of substance abuse (ETOH, street drugs, prescription drugs, etc.) Mental health diagnosis (anxiety, depression, pers onality disorders, etc.) Score: 14 Date Signed: 03/28/2018 01:16 PM Electronically Signed By:BEATRIZ Flood
--- NOTE | 2018-03-28 13:22 | ASMTCMCOM ---
CM Note CM Note Notes: Pt in for encephalopathy, pt second admission in the last week. PT rec HHC today, spoke with pt and her father Abilio about d/c needs. Pt declines HHC. Pt will follow up with outpatient providers. Pt and father very eager to leave. Pt medically stable for d/c, no CM d/c needs identified. Date Signed: 03/28/2018 01:22 PM Electronically Signed By:BEATRIZ Flood
--- NOTE | 2018-03-28 17:23 | PDDCSUM ---
Discharge Summary Discharge Summary: Discharge diagnosis Encephalopathy Ataxia Confusion Lethargy Bipolar disorder S substance abuse disorder Patient is a 38-year-old female with past medical history of bipolar disorder, and possible substance abuse disorder, who was admitted with lethargy confusion and ataxia. Patient had just been discharged the day before for similar symptoms which were thought to be due to patient taking too high of a dose of oxcarbazepine. During that admission oxcarbazepine was discontinued and patient was discharged home on the usual dose of Abilify and Neurontin (which they had been on for a long period time with no problems). Patient was discharged home with her father and was acting normally when her father dropped her off, but he went to check on her the next morning and she was sedated lethargic and confused slurring her speech. They re-presented to the emergency room. Neurology was consulted. A urine tox screen was obtained that was positive for methamphetamine and benzodiazepines. Brain MRI was obtained which showed no abnormality. Neurology thought that the patient's symptoms were due the patient taking something. The next morning patient's symptoms had resolved. I discontinued the patient's Abilify and Neurontin case those were contributing and told patient to stop taking would ever illicit substance it is that she is taking whether be a benzo or something else. I recommended that she follow up with her primary care physician as soon as possible along with her psychiatrist to consider an alternative medication for her bipolar disorder that is not so sedating. Of note patient's father says that she does have a pretty strong history of drug abuse. Discharge disposition Home with father Medications Stopped Abilify Stop Neurontin Stopped propranolol
== END 2018-03-28 11:34 | disposition home or self-care (01) ==
LOC: F3N 12:47
PROVIDERS: ADMIT Internal Medicine; ATTEND Internal Medicine
DX: G93.40 Encephalopathy, unspecified (principal); R27.0 Ataxia, unspecified; F31.9 Bipolar disorder, unspecified; F19.10 Other psychoactive substance abuse, uncomplicated; E86.9 Volume depletion, unspecified; G25.0 Essential tremor; F10.21 Alcohol dependence, in remission; Z79.891 Long term (current) use of opiate analgesic; Z87.891 Personal history of nicotine dependence; Z88.0 Allergy status to penicillin
CPT/HCPCS: 70553; 97161; 99285; G0378; 80183-90; 80307; A9585; G0480; J1650

== ENCOUNTER 2018-04-02 10:22 | Inpatient (IN) | payer OTHER | END 2018-04-04 15:57 | disposition home or self-care (01) | LOC: F3E 04-03 18:12 → F2N 15:00 ==

== ENCOUNTER 2018-05-01 21:41 | Emergency (ER) | payer OTHER ==
--- NOTE | 2018-05-01 22:21 | EDPHY ---
H & P Stated Complaint: ETOH withdrawal, last drink in AM Time Seen by Provider: 05/01/18 22:21 HPI/ROS: HPI CHIEF COMPLAINT: Possible alcohol intoxication, drinking mouthwash per her dad. 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 She asked her father to bring her to bring her to the emergency room however she state "she does not really know why she is here". She does admit to drinking large amount of mouthwash. Past Medical History: Patient has significant past medical history for bipolar disorder, substance abuse including alcohol, mouthwash, residential green building designer drugs, prescription drugs Past Surgical History: Denies recent surgical history Social History: Frequent alcohol use, substance abuse, mouthwash Family History: Noncontributory ROS REVIEW OF SYSTEMS: Limited as the patient cannot really tell me why she is here answer my questions appropriately. Exam Constitutional intoxicated, smells of alcohol, triage nursing summary reviewed , vital signs reviewed, awake/alert. Eyes normal conjunctivae and sclera, EOMI, PERRLA. HENT normal inspection, atraumatic, moist mucus membranes, no epistaxis, neck supple/ no meningismus, no raccoon eyes. Respiratory clear to auscultation bilaterally, normal breath sounds, no respiratory distress, no wheezing. Cardiovascular rate normal, regular rhythm, no murmur, no edema, distal pulses normal. Gastrointestinal soft, non-tender, no rebound, no guarding, normal bowel sounds, no distension, no pulsatile mass. Genitourinary no CVA tenderness. Musculoskeletal no midline vertebral tenderness, full range of motion, no calf swelling, no tenderness of extremities, no meningismus, good pulses, neurovascularly intact. Skin pink, warm, & dry, no rash, skin atraumatic. Neurologic alert or x1, moves all 4 extremities equally, motor intact, sensory intact, CN II-XII intact, normal cerebellar, normal vision, normal speech. Psychiatric normal mood/affect. Heme/Lymph/Immune no lymphadenopathy. Differential Diagnosis: Includes but is not limited to in a particular order drug intoxication, alcohol intoxication, substance abuse, electrolyte disturbance, maximiliano, underlying psychiatric illness, encephalopathy Medical Decision Making: Plan for this patient IV establishment IV fluid bolus , basic labs, alcohol level, drug screen, and re-evaluate. Re-evaluation: Serum alcohol level 168. 0352: Patient re-evaluated this time is asking to be discharged from the emergency room. Father is comfortable this. She is now sober. She initially had a serum alcohol level 168. Has no medical complaints. She has capacity make medical decisions now, she is answering questions appropriately. She can' t really tell me why she initially wanted to come to the emergency room. However she is requesting multiple times to nursing staff as well as myself to be discharged. Her father is comfortable this plan will take her home. Her father is here from [place] and will be with her tonight. The patient denies any thoughts of wanting to harm herself or anybody else. I do encourage her to stop drinking alcohol. Return precautions discussed with her. Source: Patient - Personal History LMP (Females 10-55): 1-7 Days Ago Current Tetanus/Diphtheria Vaccine: Yes Tetanus Vaccine Date: WITHIN 10 YRS - Medical/Surgical History Hx Asthma: No Hx Chronic Respiratory Disease: No Hx Diabetes: No Hx Cardiac Disease: No Hx Renal Disease: No Hx Cirrhosis: No Hx Alcoholism: Yes Hx HIV/AIDS: No Hx Splenectomy or Spleen Trauma: No Other PMH: jaw surgery, ADD, depression, anxiety, PTSD, bipolar, ETOH abuse. - Social History Smoking Status: Former smoker Constitutional: Initial Vital Signs Temperature (C) 36.6 C 05/01/18 21:42 Heart Rate 88 05/01/18 21:42 Respiratory Rate 16 05/01/18 21:42 Blood Pressure 127/76 H 05/01/18 21:42 O2 Sat (%) 97 05/01/18 21:42 O2 Delivery Mode Room Air Allergies/Adverse Reactions: No Known Allergies Allergy (Verified 05/01/18 21:44) Home Medications: Medication Instructions Recorded Abilify 05/01/18 Gabapentin 05/01/18 [place] Carbonate 300 mg/5 ml (RX) 05/01/18 Propranolol HCl 05/01/18 Medical Decision Making - Data Points Laboratory Results: Laboratory Results 05/01/18 23:05 05/01/18 23:05 05/02/18 05/01/18 05/01/18 00:15 23:05 23:05 WBC RBC Hgb Hct MCV MCH MCHC RDW Plt Count MPV Neut % (Auto) Lymph % (Auto) Clarke % (Auto) Eos % (Auto) Baso % (Auto) Nucleat RBC Rel Count Absolute Neuts (auto) Absolute Lymphs (auto) Absolute Monos (auto) Absolute Eos (auto) Absolute Basos (auto) Absolute Nucleated RBC Immature Gran % Immature Gran # Sodium 140 mEq/L mEq/L (135-145) Potassium 3.9 mEq/L mEq/L (3.5-5.2) Chloride 109 mEq/L mEq/L (97-110) Carbon Dioxide 21 mEq/l L mEq/l (22-31) Anion Gap 10 mEq/L mEq/L (6-14) BUN 9 mg/dL mg/dL (7-23) Creatinine 0.6 mg/dL mg/dL (0.6-1.0) Estimated GFR > 60 Glucose 73 mg/dL mg/dL (70-100) Calcium 8.2 mg/dL L mg/dL (8.5-10.4) Total Bilirubin 0.3 mg/dL mg/dL (0.1-1.4) Conjugated Bilirubin 0.2 mg/dL mg/dL (0.0-0.5) Unconjugated Bilirubin 0.1 mg/dL mg/dL (0.0-1.1) AST 23 IU/L IU/L (14-46) ALT 49 IU/L IU/L (9-52) Alkaline Phosphatase 85 IU/L IU/L (38-126) Total Protein 6.9 g/dL g/dL (6.3-8.2) Albumin 3.9 g/dL g/dL (3.5-5.0) Lipase 33 IU/L IU/L (23-300) Beta HCG, Qual NEGATIVE Urine Color YELLOW Urine Appearance CLEAR Urine pH 5.0 (5.0-7.5) Ur Specific [place] 1.021 (1.002-1.030) Urine Protein 1+ H (NEGATIVE) Urine Ketones 1+ H (NEGATIVE) Urine Blood 3+ H (NEGATIVE) Urine Nitrate NEGATIVE (NEGATIVE) Urine Bilirubin NEGATIVE (NEGATIVE) Urine Urobilinogen NEGATIVE EU EU (0.2-1.0) Ur Leukocyte Esterase NEGATIVE (NEGATIVE) Urine RBC 50-182 /hpf H /hpf (0-3) Urine WBC 3-5 /hpf H /hpf (0-3) Ur Epithelial Cells TRACE /lpf /lpf (NONE-1+) Urine Bacteria TRACE /hpf H /hpf (NONE SEEN) Urine Mucus TRACE /lpf /lpf (NONE-1+) Urine Glucose NEGATIVE (NEGATIVE) Salicylates < 1.0 mg/dL L mg/dL (2.0-20.0) Urine Opiates Screen NEGATIVE (NEGATIVE) Acetaminophen < 10 mcg/mL L mcg/mL (10-30) Urine Barbiturates NEGATIVE (NEGATIVE) Ur Phencyclidine Scrn NEGATIVE (NEGATIVE) Ur Amphetamine Screen NEGATIVE (NEGATIVE) U Benzodiazepines Scrn NEGATIVE (NEGATIVE) Urine Cocaine Screen NEGATIVE (NEGATIVE) U Marijuana (THC) Screen NEGATIVE (NEGATIVE) Ethyl Alcohol 163 mg/dL H mg/dL (0-10) 05/01/18 23:05 WBC 7.15 10^3/uL 10^3/uL (3.80-9.50) RBC 4.41 10^6/uL 10^6/uL (4.18-5.33) Hgb 13.5 g/dL g/dL (12.6-16.3) Hct 38.8 % % (38.0-47.0) MCV 88.0 fL fL (81.5-99.8) MCH 30.6 pg pg (27.9-34.1) MCHC 34.8 g/dL g/dL (32.4-36.7) RDW 13.3 % % (11.5-15.2) Plt Count 298 10^3/uL 10^3/uL (150-400) MPV 8.1 fL L fL (8.7-11.7) Neut % (Auto) 57.4 % % (39.3-74.2) Lymph % (Auto) 32.2 % % (15.0-45.0) Clarke % (Auto) 8.7 % % (4.5-13.0) Eos % (Auto) 0.7 % % (0.6-7.6) Baso % (Auto) 0.7 % % (0.3-1.7) Nucleat RBC Rel Count 0.0 % % (0.0-0.2) Absolute Neuts (auto) 4.11 10^3/uL 10^3/uL (1.70-6.50) Absolute Lymphs (auto) 2.30 10^3/uL 10^3/uL (1.00-3.00) Absolute Monos (auto) 0.62 10^3/uL 10^3/uL (0.30-0.80) Absolute Eos (auto) 0.05 10^3/uL 10^3/uL (0.03-0.40) Absolute Basos (auto) 0.05 10^3/uL 10^3/uL (0.02-0.10) Absolute Nucleated RBC 0.00 10^3/uL 10^3/uL (0-0.01) Immature Gran % 0.3 % % (0.0-1.1) Immature Gran # 0.02 10^3/uL 10^3/uL (0.00-0.10) Sodium Potassium Chloride Carbon Dioxide Anion Gap BUN Creatinine Estimated GFR Glucose Calcium Total Bilirubin Conjugated Bilirubin Unconjugated Bilirubin AST ALT Alkaline Phosphatase Total Protein Albumin Lipase Beta HCG, Qual Urine Color Urine Appearance Urine pH Ur Specific [place] Urine Protein Urine Ketones Urine Blood Urine Nitrate Urine Bilirubin Urine Urobilinogen Ur Leukocyte Esterase Urine RBC Urine WBC Ur Epithelial Cells Urine Bacteria Urine Mucus Urine Glucose Salicylates Urine Opiates Screen Acetaminophen Urine Barbiturates Ur Phencyclidine Scrn Ur Amphetamine Screen U Benzodiazepines Scrn Urine Cocaine Screen U Marijuana (THC) Screen Ethyl Alcohol Medications Given: Discontinued Medications Sodium Chloride (Ns) 1,000 mls @ 0 mls/hr IV EDNOW ONE; Wide Open PRN Reason: Protocol Stop: 05/01/18 22:58 Last Admin: 05/01/18 23:03 Dose: 1,000 mls Sodium Chloride (Ns) 1,000 mls @ 0 mls/hr IV EDNOW ONE; Wide Open PRN Reason: Protocol Stop: 05/01/18 23:00 Last Admin: 05/01/18 23:02 Dose: 1,000 mls Ondansetron HCl (Zofran) 4 mg IVP EDNOW ONE Stop: 05/02/18 02:20 Last Admin: 05/02/18 02:22 Dose: 4 mg Departure - Departure Disposition: Home, Routine, Self-Care Clinical Impression: Alcoholic intoxication Qualifiers: Complication of substance-induced condition: uncomplicated Qualified Code(s): F10.920 - Alcohol use, unspecified with intoxication, uncomplicated Condition: Good Instructions: Alcohol Intoxication (ED) Referrals: NONE *PRIMARY CARE P,. [Primary Care Provider] - As per Instructions [facility],. [Clinic] - As per Instructions
[2018-05-01] MEDS ORDERED: NS 1,000 ML IV ONE ×2 (22:57→22:59)
[2018-05-01 23:24] LABS: PLATELET COUNT 298 10^3/uL (150-400)
[2018-05-02] MEDS ORDERED: ONDANSETRON 4 MG/2 ML VIAL ONE (02:18)
[2018-05-02] MEDS ORDERED: ONDANSETRON 4 MG/2 ML VIAL IVP ONE (02:19)
[2018-05-02 04:00] VITALS: BP 109/75
== END 2018-05-02 03:59 | disposition home or self-care (01) ==
DX: F10.920 Alcohol use, unspecified with intoxication, uncomplicated (principal); E86.9 Volume depletion, unspecified
CPT/HCPCS: 80305; 96374; G0480; J2405

== ENCOUNTER 2018-07-10 15:52 | Inpatient (IN) | payer OTHER ==
[2018-07-10] MEDS ORDERED: LORazepam 2 MG/ML INJ IVP ONE ×2 (19:35→19:45)
[2018-07-10] MEDS ORDERED: LORazepam 2 MG/ML INJ ONE (19:39)
[2018-07-10] MEDS ORDERED: ONDANSETRON 4 MG/2 ML VIAL IVP PRN (19:46)
[2018-07-10] MEDS ORDERED: PROTOCOL K PHOSPHATE 1 DOSE IV PRN (19:46)
[2018-07-10] MEDS ORDERED: PROTOCOL POTASSIUM 1 DOSE MISC PRN (19:46)
[2018-07-10] MEDS ORDERED: FLUMAZENIL 0.5 MG/5 ML MDV IVP PRN (19:46)
[2018-07-10] MEDS ORDERED: ONDANSETRON DISINTEGRATING 4 MG TAB PO PRN (19:46)
[2018-07-10] MEDS ORDERED: HYDROmorphONE/DILAUDID 1 MG/ML INJ IVP PRN (19:46)
[2018-07-10] MEDS ORDERED: PROTOCOL MAGNESIUM 1 DOSE IV PRN (19:46)
[2018-07-10] MEDS ORDERED: PROTOCOL CALCIUM 1 DOSE IV PRN (19:46)
[2018-07-10] MEDS ORDERED: ACETAMINOPHEN 325 MG TAB PO PRN (19:46)
[2018-07-10] MEDS ORDERED: PROMETHAZINE HCL 25 MG/ML INJ IVP PRN (19:46)
--- NOTE | 2018-07-10 20:25 | PDGENHP ---
History and Physical - Chief Complaint sent from [facility] for concerns of ROMINA, withdrawal/intoxication - History of Present Illness 38 yo F with hx of bipolar d/o and polysubstance abuse currently in treatment through [facility] and transferred from [facility] with ROMINA and continued substance abuse including most recently reportedly isopropyl alcohol, benadryl and immodium. In the past she has also used mouthwash and allergy nasal spray in order to get intoxicated but initially denied that, at the time of my evaluation she does not remember what she was taking but is sure she was drinking isopropyl alcohol, benadryl and immodium. At [facility] she was noted to have ROMINA with a creatinine of 2.5 initially, she also appeared dry, had low K and there was concern that her bipolar d/o was currently active and perhaps leading to her being unsafe. Of note, she has been seen here several times for very similar issues, last in March. She has been in and out of treatment for her drug abuse, initially at [facility] and now at [facility] as above. She notes that she uses these things instead of alcohol or more traditional drugs of abuse so that she can pass her drug tests. She is accompanied by her father who lives out of state but is very supportive. He notes that she has had several seizures in the past, but that she also can use the concern that she may have a seizure as a way to manipulate drugs from the hospital. History Information - Allergies/Home Medication List Allergies/Adverse Reactions: No Known Allergies Allergy (Verified 05/01/18 21:44) Home Medications: Abilify 05/01/18 [Last Taken Unknown] Gabapentin 05/01/18 [Last Taken Unknown] [place] Carbonate 300 mg/5 ml (RX) 05/01/18 [Last Taken Unknown] I have personally reviewed and updated: family history, medical history, social history, surgical history - Past Medical History psychiatric history Additional medical history: alcoholism with history of withdrawal, mood/bipolar disorder (followed by Dr Spring Dang) - Surgical History Additional surgical history: C section x 3. jaw reconstruction. breast augmentation - Family History Positive for: non-pertinent Additional family history: mother - alcohol abuse, grandfather - parkinsons - Social History Smoking Status: Former smoker Alcohol Use: Heavy (currently drinking isopropyl alcohol in order to pass drug tests) Drug Use: Other (hx of senior ui designer drugs abuse, prescription drug abuse, alcohol abuse) Additional social history: . She has 3 boys and raises them. Father just recently moved to [place] to help. Review of Systems Review of Systems: ROS: 10pt was reviewed & negative except for what was stated in HPI & below Physical Exam Physical Exam: Constitutional: appears nourished, uncomfortable, unkempt Eyes: PERRL, anicteric sclera Ears, Nose, Mouth, Throat: moist mucous membranes, hearing normal Cardiovascular: regular rate and rhythym, no murmur, rub, or gallop, No edema Respiratory: no respiratory distress, no rales or rhonchi, clear to auscultation Gastrointestinal: normoactive bowel sounds, soft, non-tender abdomen Genitourinary: no bladder tenderness Skin: warm, normal color Musculoskeletal: full muscle strength Neurologic: AAOx3 Psychiatric: interacting appropriately, not anxious Lab Data & Imaging Review Visualized and Interpreted EKG results: Yes EKG Interpretation: Positive for: normal sinsus rhythm EKG additional interpertation: qt borderline prolonged Assessment & Plan Assessment: 38 yo F with PMH of PSA, bipolar disorder pw ROMINA and alcohol withdrawal # ROMINA: in the setting of reported several days of intoxication with benadryl, isopropyl alcohol and immodium without osmolar gap at OSH earlier today and presumably pre renal. Was beginning to trend down prior to transfer, repeat BMP now pending. Will get bladder scan given hx of heavy benadryl use. # polysubstance abuse/ingestions: isopropyl alcohol, benadryl and immodium. Management of isopropyl alcohol overdose similar to alcohol, continue on CIWA. She does have ethylene glycol and methanol levels pending at [facility] but no prior hx of using that. APAP and salicylate levels zero earlier today. She is currently in treatment, but clearly needs higher level of care likely and father present at bedside considering options. # alcohol withdrawal: started on CIWA, hx of seizures with withdrawal and patient insisting that she is 'about to have a seizure', no recent etoh ingestion only isopropyl alcohol as above # prolonged QT: noted and in the setting of immodium overdose with which it is associated, monitoring on tele, avoiding qt prolonging meds, watching electrolytes # electrolyte abnormalities: with hypokalemia and hypomag earlier today, started on electrolyte protocol # anticholinergic toxicity: with evidence of mydriasis and slightly dysconjugate gaze as well as reported encephalopathy earlier that seems to be resolving, checking bladder scan as above, supportive care # IP status, high risk requiring ICU level care, an additional 35 min critical care time spent in evaluation of labs and bedside evaluation of patient as well as coordination of care with OS MD Patient new to my care. Old records reviewed and summarized as above. Care plan reviewed with Jayesh hospitalist and further hx obtained from patients father present at bedside.
[2018-07-10 20:35] LABS: PLATELET COUNT 406 10^3/uL (150-400)
[2018-07-10] MEDS: NS 1,000 ML IV SCH (20:35)
[2018-07-10] MEDS: FAMOTIDINE 20 MG TAB PO SCH (20:35)
[2018-07-10] MEDS: LORazepam 2 MG/ML INJ IVP PRN ×2 (21:10→22:16)
[2018-07-11] MEDS: LORazepam 2 MG/ML INJ IVP PRN ×11 (00:05→23:44)
[2018-07-11] MEDS: NS 1,000 ML IV SCH (04:00)
[2018-07-11 04:01] LABS: PLATELET COUNT 383 10^3/uL (150-400)
[2018-07-11] MEDS ORDERED: PNEUMOCOCCAL 0.5ML VACCINE VIAL (PNEUMOVAX 23) IM ONE ×2 (07:50→19:30)
[2018-07-11] MEDS: FAMOTIDINE 20 MG TAB PO SCH ×2 (07:59→19:40)
[2018-07-11] MEDS: FOLIC ACID 1 MG TAB PO SCH (07:59)
[2018-07-11] MEDS: MULTIVITAMINS 1 EACH TAB PO SCH (07:59)
[2018-07-11] MEDS: THIAMINE HCL 500 MG in NS 100 ML IV SCH (08:58)
[2018-07-11] MEDS: HYDROCODONE/APAP 5/325 TAB PO PRN ×2 (09:17→13:51)
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
--- NOTE | 2018-07-11 09:58 | PDMN ---
Medical Necessity Medical necessity: MCG: M595 substance related disorders 2 days: 38yo with PMHX bipolar disorder ,ROMINA, ETOH w/d, transferred from [facility] - isopropyl alcohol, benedryl and immodium ingestions. on CIWA protocol, hx of SZ with W/d , also with prolonged QT- electrolyte abnormalities, hypokalemia, hypomagnes. anticholinergic toxicity with evidence of mydriasis and slight dysconjugate gaze , anticipate > 2 MN ongoing med nec care- further eval, monitoring, and tx. in this high risk pt.
--- NOTE | 2018-07-11 10:29 | HOSPPROG ---
Hospitalist Progress Note Assessment/Plan: 38 yo F with h/o polysubstance abuse and bipolar disorder admitted with polysubstance od and alcohol withdrawal # Polysubstance overdose: isopropyl alcohol, immodium and benadryl -methanol and ethylene glycol levels pending at [facility], requested these records # Acute etoh w/d: had been drinking isopropyl alcohol. CIWA's up to 22 overnight, but this is mostly subjective. Received 12 mg Ativan overnight. -cont CIWA, discussed with RN will measure CIWA by RN objective input to avoid manipulation # ROMINA: resolved with IVF's # prolonged QT: likely related to immodium od -monitor on tele -avoid QT prolonging agents # electrolyte abnormalities: resolved # anticholinergic toxicity: 2/2 benadryl, improved # dispo: cont inpt, will return to [facility] for residential tx (was doing intensive outpt, but will transition to inpt given above issues). CM involved for dispo planning. Subjective: Pt sleeping, awakens easily. Denies pain. No N/V. Says "just treat my withdrawal". Voiding ok. Objective: Vital Signs Temp Pulse Resp BP Pulse Ox 36.9 C 72 20 131/85 H 97 07/11/18 07:39 07/11/18 10:00 07/11/18 10:00 07/11/18 10:00 07/11/18 07:39 Laboratory Results 07/11/18 03:45 07/11/18 03:45 07/10/18 07/11/18 07/12/18 05:59 05:59 05:59 Intake Total 3030 Output Total 1200 800 Balance 1830 -800 - Physical Exam Constitutional: no apparent distress Eyes: PERRL Ears, Nose, Mouth, Throat: moist mucous membranes Cardiovascular: regular rate and rhythym Respiratory: no respiratory distress, clear to auscultation Gastrointestinal: normoactive bowel sounds, soft, non-tender abdomen Skin: warm Musculoskeletal: full muscle strength Neurologic: AAOx3 Psychiatric: interacting appropriately ICD10 Worksheet Patient Problems: Problems Problem Status Onset Alcohol withdrawal Acute Encephalopathy acute Acute
--- NOTE | 2018-07-11 14:25 | ASMTCASEMG ---
Living Arrangements What is your living Answers: With Child(john) arrangement? Who do you live with? Type Of Residence What kind of residence do Answers: House you live in? Discharge Plan Comments Coordination Status Comments Notes: Patient is a 38yo female well known to [facility] with a hx of Bipolar Disorder and polysubstance abuse currently in treatment with [facility]. Patient was drinking isopropyl alcohol in order to pass her drug tests. Patient is being admitted for ROMINA, polysubstance abuse/ingestions, ETOH withdrawal, electrolyte abnormalities, anticholinergic toxicity, and IP status due to high risk. There are some concerns her Bipolar disorder is active currently as well. Patient's father, Abilio, is supportive and has recently moved to the area to help. No therapies ordered at this time. Patient does not list a PCP. A release was prepared for [facility] to release medical information to [facility] Admissions per patient's father's request. The plan for discharge is patient return to [facility], the residential program. CM will follow. Date Signed: 07/11/2018 02:24 PM Electronically Signed By:Yajaira Adorno LCSW
--- NOTE | 2018-07-11 15:28 | ASMTCMCOM ---
DUSTIN Note CM Note Notes: Left a message for Terra with [facility] that we have the release and need to know what information they will need to admit patient to their residential program. Terra's number [phone]. Will wait for her reaponse to fax records. CM following. Date Signed: 07/11/2018 03:27 PM Electronically Signed By:Yajaira Adorno LCSW
[2018-07-11] MEDS: oxyCODONE IR 5 MG TAB PO PRN ×2 (17:23→21:51)
[2018-07-11] MEDS ORDERED: POTASSIUM CL 10 MEQ TAB PO ONE (19:27)
[2018-07-12] MEDS ORDERED: traZODone 50 MG TAB PO PRN (00:48)
[2018-07-12 10:51] VITALS: BP 141/86
[2018-07-12] MEDS: FAMOTIDINE 20 MG TAB PO SCH (11:15)
[2018-07-12] MEDS: FOLIC ACID 1 MG TAB PO SCH (11:15)
[2018-07-12] MEDS: THIAMINE HCL 500 MG in NS 100 ML IV SCH (11:15)
[2018-07-12] MEDS: MULTIVITAMINS 1 EACH TAB PO SCH (11:15)
[2018-07-12] MEDS ORDERED: ARIPiprazole 5 MG TAB PO SCH (12:00)
[2018-07-12] MEDS ORDERED: GABAPENTIN 400 MG CAP PO SCH (12:00)
--- NOTE | 2018-07-12 12:34 | ASMTDCNOTE ---
Case Management Discharge Discharge Order Complete? Answers: Yes Patient to Obtain Answers: Other Notes: [facility] Medications Transportation Arranged Answers: Family/Friends Faxed Final Orders Answers: Yes Notes: [facility] Agency/Facility Transfer Answers: Yes Notes: [facility] Report Printed & Faxed to Receiving Agency Family Notified Answers: Yes Notes: father, Abilio Discharge Comments Notes: Patient is discharging to [facility] residential program today. Patient's father was given her medical records to take with them for admissions. [facility] is in the chart. Abilio will drive her directly from the hospital to [facility]. No further needs. Date Signed: 07/12/2018 12:32 PM Electronically Signed By:Yajaira Adorno LCSW
--- NOTE | 2018-07-12 12:44 | PDIAF ---
- Diagnosis Diagnosis: alcohol withdrawal, polysubstance abuse Code Status: Full Code - Medication Management Discharge Medications: electronically signed and located in the Home Medication List. PICC Care - Routine: N/A - Follow Up Care Current Providers and Referrals: Patient,NotPresent [Primary Care Provider] -
--- NOTE | 2018-07-12 20:10 | GDS ---
[ rep st] DISCHARGE SUMMARY DISCHARGE DIAGNOSES: 1. Polysubstance overdose including alcohol, Benadryl, and Imodium. 2. Acute alcohol withdrawal. 3. Bipolar disorder. 4. Acute kidney injury, resolved. 5. Prolonged QT interval like secondary to Imodium overdose, improved. HISTORY: Please see history and physical dated July 10, 2017. In brief, Ms. Grubbs is a 38-year-ol d female with a history of polysubstance abuse and bipolar disorder, who has been attending intensive outpatient substance use treatment at [facility], and presented to the hospital for adm ission from the [facility] Emergency Department due to polysubstance overdose with acute alcohol withdraw al and acute kidney injury. She apparently had been drinking isopropyl alcohol to avoid positive yayo g screens. She developed acute alcohol withdrawal, in addition to concern for Benadryl and Imodium o verdose, and was admitted to the intensive care unit for further management. HOSPITAL COURSE: The patient was admitted to the ICU. She received IV fluid resuscitation. She was placed on CIWA protocol. It became evident to the staff and care team that she manipulated her CIWA scores with drug-seeking behavior, and seeking benzodiazepines. She had no objective evidence of si gnificant withdrawal, without tremors, delirium, tachycardia, or hypertension. She did receive many doses of Ativan, though remained benzodiazepine free for 12 hours prior to discharge, and objectively does not appear to have active withdrawal. She was monitored on telemetry, noting a prolonged QT se gment in the setting of Imodium overdose. In addition, she had some symptoms of anticholinergic toxi city from Benadryl. Her condition is stabilized. It has been arranged for her to return to [facility] for the residential treatment program. She was continued on her psychiatric medicatio ns including Abilify, lithium, and gabapentin. She would definitely benefit from ongoing psychiatric consultation. PHYSICAL EXAMINATION: GENERAL: On the day of discharge, she is hemodynamically stable. VITAL SIGNS : Blood pressure 141/86, heart rate 90, respiratory rate 18. She is 95% on room air. DISPOSITION: Patient is discharged to [facility] treatment center in stable condition. FOLLOWUP: Followup should be with her primary care and psychiatric provider. DISCHARGE MEDICATIONS: Please see ASSET4 for completed outpatient medications. Medications on dis charge include: 1. Multivitamin 1 p.o. daily. 2. Thiamine 100 mg p.o. daily. She will continue her other outpatient medications as previously pre scribed including: a. [place] 600 mg p.o. at bedtime. Note lithium level is 0.2, which is low. b. Gabapentin 800 mg p.o. q.6 hours. c. Abilify 5 mg p.o. daily. /[id number]/MODL
[2018-07-12] MEDS ORDERED: LITHIUM CARBONATE ER 300 MG TAB PO SCH (21:00)
[2018-07-13] MEDS ORDERED: THIAMINE HCL 100 MG TAB PO SCH (19:46)
== END 2018-07-12 13:03 | DRG 683 ==
LOC: F2N 19:03
PROVIDERS: ADMIT Internal Medicine; ATTEND Internal Medicine
DX: N17.9 Acute kidney failure, unspecified (principal); F10.239 Alcohol dependence with withdrawal, unspecified; F10.229 Alcohol dependence with intoxication, unspecified; E87.6 Hypokalemia; E83.42 Hypomagnesemia; H57.04 Mydriasis; T51 Toxic effect of alcohol; T44 Poisoning by, adverse effect of and underdosing of drugs primarily affecting the autonomic nervous system; T45.0X1 Poisoning by antiallergic and antiemetic drugs, accidental (unintentional); T47 Poisoning by, adverse effect of and underdosing of agents primarily affecting the gastrointestinal system; I45.81 Long QT syndrome; F31.9 Bipolar disorder, unspecified; Z23 Encounter for immunization; Z87.891 Personal history of nicotine dependence
CPT/HCPCS: G0009; J2060; J2550; J3411

== ENCOUNTER 2018-07-20 21:13 | Emergency (ER) | payer OTHER | END 2018-07-20 22:59 | disposition home or self-care (01) ==

== ENCOUNTER 2018-07-21 11:07 | Emergency (ER) | payer OTHER | END 2018-07-21 12:23 | disposition home or self-care (01) ==

== ENCOUNTER 2018-07-27 04:24 | Emergency (ER) | payer OTHER | END 2018-07-27 05:00 | disposition home or self-care (01) | LOC: CED 04:24 ==